=== PATIENT | female | born 1965 | race Caucasian/White ===

== ENCOUNTER 2020-10-05 10:50 | Outpatient (REF) | payer MEDICAID, SELFPAY ==
--- NOTE | ~2020-10-05 | XR_ITS ---
EXAMINATION: XR LUMBOSACRAL SPINE CLINICAL INFORMATION: Chronic back pain. COMPARISON: 01/09/2012 TECHNIQUE: Three views of the lumbosacral spine. FINDINGS: There is a lumbar scoliosis which has progressed since the prior study. Degenerative change is present at most levels in the spine. The most marked changes are present from L3 through L5. Since the prior study in 2011, findings have certainly progressed with increasing disc space narrowing and endplate sclerosis. New area of sclerosis in the right L3 pedicle. XR/XR lumbar spine 2-3V IMPRESSION: Progression of changes in the lumbosacral spine since 2011 as described above.
== END 2020-10-05 10:51 | disposition home or self-care (01) ==
LOC: HO.XRAY 10:50
PROVIDERS: PCP Nurse Practitioner Adult Health; Visit Provider Nurse Practitioner Adult Health
DX: M51.36 Other intervertebral disc degeneration, lumbar region (principal)
CPT/HCPCS: 72100

== ENCOUNTER → 2022-06-16 12:32 | Outpatient (BNVA) | payer OTHER, SELFPAY | PROVIDERS: PCP Nurse Practitioner Adult Health; Visit Provider Psychiatry & Neurology Psychiatry | DX: Z13.89 Encounter for screening for other disorder (principal) ==

== ENCOUNTER → 2022-09-14 16:55 | Outpatient (BNVA) | payer OTHER, SELFPAY | PROVIDERS: PCP Nurse Practitioner Adult Health; Visit Provider Psychiatry & Neurology Psychiatry ==

== ENCOUNTER 2022-12-12 15:27 | Outpatient (AMB) | payer OTHER, SELFPAY ==
--- NOTE | 2022-12-12 11:16 | MHC.OFFVISPS ---
Intake Intake Visit Reasons: depression Allergies No Known Allergies Allergy (Verified 04/18/22 17:23) Medication List - Last Reconciled 12/12/22 by Simeon Garzon MD albuterol sulfate 90 mcg/actuation (Ventolin HFA) 1 inh inhalation QID PRN 30 days fluoxetine 20 mg PO DAILY gabapentin 600 mg PO BEDTIME meloxicam 15 mg PO DAILY methylphenidate HCl ER 27 mg PO QAM zolpidem 5 mg PO BEDTIME PRN HPI- Psychiatric Chief Complaint: depression HPI Narrative: Pt has been doing well had spent time in md mood stable sleep ok intermittantly uses ambien 5 mg gabapentin 300 -600 mg some sluggishnish in am has generally been doing ok has been using lists borderline a1c drinks 2 glasses wine nite Past Psychiatric History: hx add chronic dysphoria Mental Status Exam Mental Status Exam Patient Appearance: Well Grooomed Patient Orientation: Person, Place, Time and Situation Level of Consciousness: Awake Patient Behavior: Appropriate Mood Description: Appropriate and Relaxed Affect Description: Calm and Appropriate Patient Cognition Impaired: No Ability to Follow Directions: Excellent Speech Pattern: Clear Memory Description: Intact Hallucinations: None Delusions: Not Present Thought Process: Intact Thought Content: negative for Suicidal Ideation or negative for Homicidal Ideation Depressive Symptoms: Increased Fatigue Judgement and Insight: working on organizational issues Telehealth Telehealth Location of provider rendering services: practice address Location of patient: address on file Patient Identification confirmed using: Name, : Yes Telehealth method: video Patient verbally consented to treatment: Yes Patient verbally consented to billing insurance company: Yes Minutes spent on Phone/Video with Pt.: 20 Assessment and Plan Assessment & Plan (1) ADHD (attention deficit hyperactivity disorder), inattentive type: Status: Acute Code(s): F90.0 - Attention-deficit hyperactivity disorder, predominantly inattentive type (2) Prediabetes: Status: Acute Code(s): R73.03 - Prediabetes (3) Restless leg: Status: Acute Code(s): G25.81 - Restless legs syndrome Plan Patient generally doing well mood stable discussed sleep hygiene related issues trial to see if she can eventually use Ambien on as-needed basis trying to maintain sleep schedule. Issues related to organizational activities. Patient with borderline hemoglobin A1c discussed decreasing alcohol which currently is generally to +1 a night which at present is above recommended dosing and can also interfere with sleep. Continue Prozac mood stable gabapentin for restless legs Ambien 5 mg methylphenidate extended release for longstanding ADD. No reported hypertension palpitations no complaints of side effects have discussed previously Prozac can contribute to issues related to restless legs Medications: Refilled methylphenidate HCl ER Partial Fill upon patient request. 27 mg PO QAM 30 tabs 0RF fluoxetine 20 mg PO DAILY 30 caps 2RF methylphenidate HCl ER Partial Fill upon patient request. 27 mg PO QAM 30 tabs 0RF Counseling and coordination of Care Medication management counseling: Effectiveness and Side effects Details-Med Mgmt counseling: Discussed association with sleep aids and dementia risk Diagnosis and Prognosis Counseling: Adequacy of current interventions Details: I spent [27] minutes reviewing the record, seeing the patient and documenting in the medical record. Counseling provided to the patient/caregiver as outlined below. Addressed patient/caregiver concerns regarding current medication regime including effective adherence. Addressed patient/caregiver concerns regarding diagnosis and prognosis including accuracy of diagnosis, prognosis over time, impact of diagnosis. Addressed patient/caregiver concerns regarding impact of recent stressors. 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
== END 2022-12-12 15:29 | disposition home or self-care (01) ==
LOC: HO.HOP 15:27
PROVIDERS: PCP Nurse Practitioner Adult Health; Visit Provider Psychiatry & Neurology Psychiatry
DX: F90.0 Attention-deficit hyperactivity disorder, predominantly inattentive type (principal); R73.03 Prediabetes; G25.81 Restless legs syndrome
CPT/HCPCS: 99214

== ENCOUNTER → 2022-12-12 15:27 | Outpatient (BNVA) | payer OTHER, SELFPAY | PROVIDERS: PCP Nurse Practitioner Adult Health; Visit Provider Psychiatry & Neurology Psychiatry | DX: F90.0 Attention-deficit hyperactivity disorder, predominantly inattentive type (principal); R73.03 Prediabetes; G25.81 Restless legs syndrome ==

== ENCOUNTER 2023-06-13 14:20 | Outpatient (AMB) | payer OTHER, SELFPAY ==
--- NOTE | 2023-06-13 11:30 | MHC.OFFVISPS ---
Intake Intake Visit Reasons: Depression Allergies No Known Allergies Allergy (Verified 04/18/22 17:23) Medication List - Last Reconciled 06/13/23 by Simeon Garzon MD albuterol sulfate 90 mcg/actuation (Ventolin HFA) 1 inh inhalation QID PRN 30 days Concerta ER (methylphenidate HCl) 27 mg PO DAILY NS fluoxetine 20 mg PO DAILY gabapentin 600 mg PO BEDTIME meloxicam 15 mg PO DAILY zolpidem 5 mg PO BEDTIME PRN HPI- Psychiatric Chief Complaint: Depression HPI Narrative: Pt seen in f/u was having metallic taste bitterness drinks 1-2 glasses wine nite was somewhat discouraged when having sensory problems and 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 gabapentin hs restless leg Past Psychiatric History: hx add chronic dysphoria Mental Status Exam Mental Status Exam Patient Appearance: Well Grooomed Patient Orientation: Person, Place, Time and Situation Level of Consciousness: Awake Patient Behavior: Appropriate Mood Description: Apprehensive (feels pressured at times ) Affect Description: Calm and Appropriate Patient Cognition Impaired: No Ability to Follow Directions: Excellent Speech Pattern: Clear Memory Description: Intact Hallucinations: None Delusions: Not Present Thought Process: Intact Thought Content: negative for Suicidal Ideation or negative for Homicidal Ideation Depressive Symptoms: Insomnia (improving ) Judgement: Good Telehealth Telehealth Location of provider rendering services: practice address Location of patient: address on file Patient Identification confirmed using: Name, : Yes Telehealth method: video Patient verbally consented to treatment: Yes Patient verbally consented to billing insurance company: Yes Minutes spent on Phone/Video with Pt.: 20 Assessment and Plan Assessment & Plan (1) Dysthymia: Status: Acute Code(s): F34.1 - Dysthymic disorder (2) Restless leg: Status: Acute Code(s): G25.81 - Restless legs syndrome (3) ADHD (attention deficit hyperactivity disorder), inattentive type: Status: Acute Code(s): F90.0 - Attention-deficit hyperactivity disorder, predominantly inattentive type Plan bp reportedly Medications: Refilled Concerta ER (methylphenidate HCl) Partial Fill upon patient request. 27 mg PO DAILY 30 tabs 0RF NS gabapentin 1/2-1 tab bedtime 600 mg PO BEDTIME 30 tabs 3RF fluoxetine 20 mg PO DAILY 90 caps 1RF Counseling and coordination of Care Details: I spent [30] minutes reviewing the record, seeing the patient and documenting in the medical record. Counseling provided to the patient/caregiver as outlined below. Addressed patient/caregiver concerns regarding current medication regime including effective adherence. Addressed patient/caregiver concerns regarding diagnosis and prognosis including accuracy of diagnosis, prognosis over time, impact of diagnosis. Addressed patient/caregiver concerns regarding impact of recent stressors. 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
== END 2023-06-13 14:21 | disposition home or self-care (01) ==
LOC: HO.HOP 14:20
PROVIDERS: PCP Nurse Practitioner Adult Health; Visit Provider Psychiatry & Neurology Psychiatry
DX: F34.1 Dysthymic disorder (principal); G25.81 Restless legs syndrome; F90.0 Attention-deficit hyperactivity disorder, predominantly inattentive type
CPT/HCPCS: 99214

== ENCOUNTER → 2023-06-13 14:20 | Outpatient (BNVA) | payer OTHER, SELFPAY | PROVIDERS: PCP Nurse Practitioner Adult Health; Visit Provider Psychiatry & Neurology Psychiatry ==

== ENCOUNTER 2023-10-05 11:08 | Outpatient (AMB) | payer OTHER, SELFPAY ==
--- NOTE | 2023-10-05 11:15 | MHC.OFFVISPS ---
Intake Vital Signs 10/05/23 11:38 BP 111/71 Pulse 71 Intake Visit Reasons: depression Allergies No Known Allergies Allergy (Verified 04/18/22 17:23) Medication List - Last Reconciled 10/05/23 by Simeon Garzon MD albuterol sulfate 90 mcg/actuation (Ventolin HFA) 1 inh inhalation QID PRN 30 days Concerta ER (methylphenidate HCl) 27 mg PO DAILY NS fluoxetine 20 mg PO DAILY gabapentin 600 mg PO BEDTIME meloxicam 15 mg PO DAILY zolpidem 5 mg PO BEDTIME PRN HPI- Psychiatric Chief Complaint: depression HPI Narrative: Pt seen in f/u mood ok intermittent burning feet has prediabetes has had periods of heavy drinking not currently can feel overstressed difficulty maintaining better habits Past Psychiatric History: hx add chronic dysphoria Assessment and Plan Assessment & Plan Medications: Refilled fluoxetine 20 mg PO DAILY 90 caps 1RF Concerta ER (methylphenidate HCl) Partial Fill upon patient request. 27 mg PO DAILY 30 tabs 0RF NS Counseling and coordination of Care Details: I spent [] minutes reviewing the record, seeing the patient and documenting in the medical record. Counseling provided to the patient/caregiver as outlined below. Addressed patient/caregiver concerns regarding current medication regime including effective adherence. Addressed patient/caregiver concerns regarding diagnosis and prognosis including accuracy of diagnosis, prognosis over time, impact of diagnosis. Addressed patient/caregiver concerns regarding impact of recent stressors. 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
[2023-10-05 11:38] VITALS: BP 111/71; PULSE 71
== END 2023-10-05 11:49 | disposition home or self-care (01) ==
LOC: HO.HOP 11:08
PROVIDERS: PCP Nurse Practitioner Adult Health; Visit Provider Psychiatry & Neurology Psychiatry
DX: F33.1 Major depressive disorder, recurrent, moderate (principal)
CPT/HCPCS: 99214

== ENCOUNTER → 2023-10-05 11:08 | Outpatient (BNVA) | payer OTHER, SELFPAY | PROVIDERS: PCP Nurse Practitioner Adult Health; Visit Provider Psychiatry & Neurology Psychiatry ==

== ENCOUNTER 2023-12-28 13:10 | Outpatient (AMB) | payer OTHER, SELFPAY ==
--- NOTE | 2023-12-28 11:51 | MHC.OFFVISPS ---
Intake Intake Visit Reasons: depression Allergies No Known Allergies Allergy (Verified 04/18/22 17:23) HPI- Psychiatric Chief Complaint: depression HPI Narrative: Pt seen in f/u mood intermittantly dysphoric has pain wrists back asked to cut back on meloxicam. 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 Patient does have some degree of burning mouth syndrome have strongly urged discontinuing all alcohol given Mood burning mouth and intermittent neuropathy. Patient continues to function does tend to get discouraged. Continues to feel long-acting methylphenidate helpful for functioning Past Psychiatric History: hx add chronic dysphoria Mental Status Exam Mental Status Exam Patient Appearance: Well Grooomed Patient Orientation: Person, Place, Time and Situation Level of Consciousness: Awake Patient Behavior: Appropriate Mood Description: Flat and Apprehensive (feels pressured at times ) Affect Description: Appropriate and Constricted Patient Cognition Impaired: No Ability to Follow Directions: Excellent Speech Pattern: Clear Memory Description: Intact Hallucinations: None Delusions: Not Present Thought Process: Intact Thought Content: negative for Suicidal Ideation or negative for Homicidal Ideation Depressive Symptoms: Insomnia (improving ) Judgement: Good Telehealth Telehealth Telehealth Platform: General Compression Location of provider rendering services: practice address Location of patient: address on file Patient Identification confirmed using: Name, : Yes Telehealth method: video Patient verbally consented to treatment: Yes Patient verbally consented to billing insurance company: Yes Minutes spent on Phone/Video with Pt.: 20 Assessment and Plan Assessment & Plan (1) ADHD (attention deficit hyperactivity disorder), inattentive type: Status: Acute Code(s): F90.0 - Attention-deficit hyperactivity disorder, predominantly inattentive type (2) Dysthymia: Status: Acute Code(s): F34.1 - Dysthymic disorder (3) Restless leg: Status: Acute Code(s): G25.81 - Restless legs syndrome Plan Continue Concerta again recommended discontinue all alcohol use ALA 4 neuropathy question burning tongue tongue/mouth Continue fluoxetine gabapentin HS Medications: Refilled Concerta ER (methylphenidate HCl) Partial Fill upon patient request. 27 mg PO DAILY 30 tabs 0RF NS Counseling and coordination of Care Medication management counseling: Effectiveness and Side effects Diagnosis and Prognosis Counseling: Adequacy of current interventions Details: I spent [30] minutes reviewing the record, seeing the patient and documenting in the medical record. Counseling provided to the patient/caregiver as outlined below. Addressed patient/caregiver concerns regarding current medication regime including effective adherence. Addressed patient/caregiver concerns regarding diagnosis and prognosis including accuracy of diagnosis, prognosis over time, impact of diagnosis. Addressed patient/caregiver concerns regarding impact of recent stressors. 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
== END 2023-12-28 13:10 | disposition home or self-care (01) ==
LOC: HO.HOP 13:10
PROVIDERS: PCP Nurse Practitioner Adult Health; Visit Provider Psychiatry & Neurology Psychiatry
DX: F90.0 Attention-deficit hyperactivity disorder, predominantly inattentive type (principal); F34.1 Dysthymic disorder; G25.81 Restless legs syndrome
CPT/HCPCS: 99214

== ENCOUNTER → 2023-12-28 13:10 | Outpatient (BNVA) | payer OTHER, SELFPAY | PROVIDERS: PCP Nurse Practitioner Adult Health; Visit Provider Psychiatry & Neurology Psychiatry ==

== ENCOUNTER 2024-05-23 11:18 | Outpatient (AMB) | payer OTHER, SELFPAY ==
--- NOTE | 2024-05-23 11:01 | MHC.OFFVISPS ---
Intake Vital Signs 05/23/24 11:02 BP 128/84 Pulse 76 Intake Visit Reasons: depression Allergies No Known Allergies Allergy (Verified 04/18/22 17:23) Medication List - Last Reconciled 05/23/24 by Simeon Garzon MD albuterol sulfate 90 mcg/actuation (Ventolin HFA) 1 inh inhalation QID PRN 30 days Concerta ER (methylphenidate HCl) 27 mg PO DAILY NS fluoxetine 20 mg PO DAILY gabapentin 600 mg PO BEDTIME meloxicam 15 mg PO DAILY zolpidem 5 mg PO BEDTIME PRN HPI- Psychiatric Chief Complaint: depression HPI Narrative: Pt seen in f/u has again not fully cut down on alcohol which we have discussed previously. Patient continues on gabapentin zolpidem gabapentin for restless leg and insomnia. The patient's mood generally stable there is a lot of stress at home with her intermittently. Past Psychiatric History: hx add chronic dysphoria Mental Status Exam Mental Status Exam Patient Appearance: Well Grooomed Patient Orientation: Person, Place, Time and Situation Level of Consciousness: Awake Patient Behavior: Appropriate Mood Description: Flat and Apprehensive (feels pressured at times ) Affect Description: Appropriate and Constricted Patient Cognition Impaired: No Ability to Follow Directions: Excellent Speech Pattern: Clear Memory Description: Intact Hallucinations: None Delusions: Not Present Thought Process: Intact Thought Content: negative for Suicidal Ideation or negative for Homicidal Ideation Depressive Symptoms: Insomnia (improving ) Judgement and Insight: Some impairment in relationship to needing to give up alcohol Assessment and Plan Assessment & Plan (1) ADHD (attention deficit hyperactivity disorder), inattentive type: Status: Acute Code(s): F90.0 - Attention-deficit hyperactivity disorder, predominantly inattentive type (2) Dysthymia: Status: Acute Code(s): F34.1 - Dysthymic disorder Plan Discussed need for patient to avoid alcohol with gabapentin and zolpidem continue fluoxetine discussed option of ramelteon as possibility of to go off all zolpidem continue gabapentin for restless leg we have discussed low iron being a risk factor for restless leg otherwise continue plan of care. Continue Concerta. Blood pressure was unremarkable. Consider setting clear limit regarding alcohol use with zolpidem Medications: Refilled zolpidem 5 mg PO BEDTIME PRN 30 tabs 3RF insomnia Counseling and coordination of Care Pt. Self Management counseling: Substance abuse tx adhere Medication management counseling: Effectiveness, Side effects and Dosing range Diagnosis and Prognosis Counseling: Impact of diagnosis on life functions, Problematic behaviors secondary to diagnosis and Adequacy of current interventions Details: I spent [32] minutes reviewing the record, seeing the patient and documenting in the medical record. Counseling provided to the patient/caregiver as outlined below. Addressed patient/caregiver concerns regarding current medication regime including effective adherence. Addressed patient/caregiver concerns regarding diagnosis and prognosis including accuracy of diagnosis, prognosis over time, impact of diagnosis. Addressed patient/caregiver concerns regarding impact of recent stressors. 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
[2024-05-23 11:02] VITALS: BP 128/84; PULSE 76
--- OUTSIDE RECORDS SUMMARY | 2024-05-23 12:20 | XMS_ITS | Data Portability ---
Author Organization [facility], [facility] Address [address] [place] [address] Care Team Providers Care Stoneworking Belt Sander Name Role Phone MARINTUCKERMARCEL ESPARZA Primary Care Provider Assessment Encounter Date Assessment Date Assessment LastModified by Organization Details LastModified Time 12/08/2021 12/08/2021 (3) Reassessed leg length. In STN there is a significant although not complete correction of LLD. She will explore obtaining customized orthotics. Core strengthening initiated and manual therapy tolerated well. PLAN; continue skobylarz Not available 12/08/2021 10:21:12 12/13/2021 12/13/2021 (4) Patient reporting that she has not been able to perform isometric adduction regularly. She has recommitted to this. Added flexion and rotation in right sidelying today. PLAN; progress strengthening. [email or web address] Not available 12/13/2021 12:31:40 12/15/2021 12/15/2021 (5) Right anterior innominate corrected with MET. Significant left parathoracic guarding. PLAN; continue skobylarz Not available 12/15/2021 10:26:58 12/27/2021 12/27/2021 (6) MET for correction of a right anterior innominate and lateral shift correction resulted in excellent alignment. UPA in the thoracic spine on the right + hypomobility. PLAN: she will increase time spent on PN with isometric adduction and abduction. If in SIJ dysfunction will consider an SILoc belt. [email or web address] Not available 12/27/2021 11:30:00 01/11/2022 01/11/2022 (7) ICH equal. Patient reporting improvement in all sxs with exception of a general ache across the lumbar spine. CORE strengthening progressesd. PLAN; 2 week follow up. [email or web address] Not available 01/11/2022 11:33:23 Plan of Treatment Reminders Order Date Submit Date Provider Last Modified By Organization Details Last Modified Time Details Appointments None record ed. Lab None record ed. Referral None record ed. Procedures None record ed. Surgeries None record ed. Imaging None record ed. Medication Orders None record ed. Patient TargetsNo targets recorded. Patient InstructionsNo instructions recorded. Reason for Referral None Reported. Procedures Surgical History Date Name Laterality Status Provider Name and Address Organization Details Recorded Time 2 98780: Therapeutic Exercise completed Adriane Kendall, PT [address] [place], [address], [facility] 01/11/2022 11:32:27 2 13553: Manual Therapy completed Adriane Kendall, PT [address] [place], [address], [facility] 01/11/2022 11:32:31 2 10399: Therapeutic Exercise completed Adriane Kendall, PT [address] [place], [address], [facility] 12/27/2021 11:28:35 2 27965: Manual Therapy completed Adriane Kendall, PT [address] [place], [address], [facility] 12/27/2021 11:28:40 2 81766: Therapeutic Exercise completed Adriane Kendall, PT [address] [place], [address], [facility] 12/15/2021 10:26:01 2 73014: Manual Therapy completed Adriane Kendall, PT [address] [place], [address], [facility] 12/15/2021 10:26:06 2 14619: Therapeutic Exercise completed Adriane Kendall, PT [address] [place], [address], [facility] 12/13/2021 12:30:39 2 57949: Manual Therapy completed Adriane Kendall, PT [address] [place], [address], [facility] 12/13/2021 12:30:43 2 84794: Therapeutic Exercise completed Adriane Kendall, PT [address] [place], [address], [facility] 12/08/2021 10:19:07 2 03413: Manual Therapy completed Adriane Kendall, PT [address] [place], [address], [facility] 12/08/2021 10:19:19 2 58680: Therapeutic Exercise completed Adriane Kendall, PT [address] [place], [address], [facility] 11/29/2021 09:07:44 2 Physical Activity Counselling completed Adriane Kendall, PT [address] [place], [address], [facility] 11/27/2021 18:44:07 2 32084: PT Eval Low Complexity completed Adriane Kendall, PT [address] [place], [address], [facility] 11/27/2021 18:44:10 7 Tyson - Colonoscopy completed Sherman Mehta MD [address] [place] [address], [address], [facility] 04/28/2016 14:38:07 Imaging Results None recorded. Procedure Notes None recorded. Medical Equipment None Reported. Medications Name Sig Start Date Stop Date Status Note LastModified by Organization Details LastModified Time gabapentin 600 mg tablet TAKE 1/2 - 1 TABLET BY MOUTH AT BEDTIME NEEDED active Not Available Not Available No t Available Concerta 18 mg tablet,extended release TAKE 1 TABLET BY MOUTH EVERY DAY active Not Available Not Available No t Available methylphenidate 10 mg tablet TAKE 1/2 TO 1 TABLET BY MOUTH ONCE A DAY NEEDED active Not Available Not Available No t Available meloxicam 15 mg tablet TAKE 1 TABLET (15 MG TOTAL) BY MOUTH DAILY. active Not Available Not Available No t Available prochlorperazin e maleate 10 mg tablet active Not Available Not Available Not Available fluoxetine 20 mg tablet active Not Available Not Available No t Available zolpidem 5 mg tablet TAKE 1 TABLET BY MOUTH EVERY DAY AT BEDTIME NEEDED active Not Available Not Available No t Available fluoxetine 20 mg capsule TAKE 1 CAPSULE BY MOUTH EVERY DAY active Not Available Not Available No t Available methylphenidate ER 36 mg tablet,extended release 24 hr active Not Available Not Availabl e Not Available Concerta 27 mg tablet,extended release TAKE 1 TABLET BY MOUTH EVERY DAY active Not Available Not Available No t Available Vitals None Recorded Social History None recorded. Functional Status None recorded. Mental Status None recorded. Family History Nothing Reported. Medical History No medical history recorded. Gynecological HistoryNo gynecological history recorded. Obstetrics History GPAL:G 0 P 0 0 0 0 Past Encounters Encounter ID Performer Location Encounter Start Date Encounter Closed Date Diagnosis/Indication Diagnosis SNOMED-CT Code Diagnosis ICD10 Code Diagnosis Note [id number] Sherman Mehta MD [facility], [address] [address] 04/28/2016 11:58:16 04/28/2016 14:49:46 [id number] Adriane Kendall, PT Physical Therapy, [address] [address] 11/25/2021 09:48:24 11/28/2021 08:23:08 Low back pain [id number] M54.51 [id number] Adriane Kendall, PT Physical Therapy, [address] [address] 11/29/2021 08:37:12 11/29/2021 09:11:51 Low back pain [id number] M54.51 [id number] Adriane Kendall, PT Physical Therapy, [address] [address] 12/08/2021 09:28:18 12/08/2021 10:21:56 Low back pain [id number] M54.51 [id number] Adriane Kendall, PT Physical Therapy, [address] [address] 12/13/2021 11:50:15 12/13/2021 12:33:38 Low back pain [id number] M54.51 [id number] Adriane Kendall, PT Physical Therapy, [facility] [address] [facility] [place] [address] 12/15/2021 09:34:47 12/15/2021 10:50:03 Low back pain [id number] M54.51 [id number] Adriane Kendall, PT Physical Therapy, [facility] [address] [facility] [place] [address] 12/27/2021 10:46:11 12/27/2021 12:14:23 Low back pain [id number] M54.51 [id number] Adriane Kendall, PT Physical Therapy, [facility] [address] [place] [address] 01/11/2022 10:51:05 01/11/2022 11:40:16 Low back pain [id number] M54.51 Health Concerns Section Related Observation LastModified by Organization Detai ls LastModified Time None Recorded Concern Status LastModified by Organization Details LastModified Time None Recorded Advance Directives Directive None Recorded Payers Encounter Date Sequence Insurance Name Policy Number Policy Light Covered Member ID Light Member ID Guarantor Name 12/08/2021 1 [place] 20[place] - [facility] (MEDICAID) Kaye Chow [id number] Kaye Chow 12/13/2021 1 [place] 20[place] - [facility] Kaye Chow [id number] Kaye Chow 12/15/2021 1 [place] 20[place] - [facility] (MEDICAID) Kaye Chow [id number] Kaye Chow 12/27/2021 1 [place] 20[place] - [facility] (MEDICAID) Kaye Chow [id number] Kaye Chow 01/11/2022 1 [place] 20[place] - [facility]ICA[facility]) Kaye Chow [id number] Kaye Chow Notes Date Note Type Note Provider Name and Address Organization Details Recorded Time 12/08/2021 text/html I felt really go od after therapy. I did have some referral discomfort but that too past after several days. Adriane Kendall, PT [address] [place], [address], [facility] 12/08/2021 10:21:29 12/13/2021 text/html This morning I rolled the right ankle and went to the ground. Adriane Kendall, PT [address] [place], [address], [facility] 12/13/2021 12:31:59 12/15/2021 text/html I am not sure if there was any change from the last appointment. Adriane Kendall, PT [address] [place], [address], [facility] 12/15/2021 10:27:21 12/27/2021 text/html I am feeling a little better. I haven't felt anything radiating in the buttock. I am trying to engage my abs when walking. Adriane Kendall, PT [address] [place], [address], [facility] 12/27/2021 11:30:26 01/11/2022 text/html Generally, the L BP that radiates into the left leg is less. ~ 60% reduction in frequency and intensity. The locking up in the midspine is also less. The general lumbar discomfort is more. My dog pulled me over backwards and to the left. I saw the chiropractor which was very helpful. Adriane Kendall, PT [address] [place], [address], [facility] 01/11/2022 11:33:41 OBGyn Episode No OBEpisode recorded.
--- OUTSIDE RECORDS SUMMARY | 2024-05-23 12:20 | XMS_ITS | Data Portability ---
Author Organization [place] - [facility], Allergy Address [address] [place] [id number] Care Team Providers Care Physical Therapy Attendant Name Role Phone MARINMARCEL ESTRADA Primary Care Provider Assessment Encounter Date Assessment Date Assessment LastModified by Organization Details LastModified Time 11/15/2023 11/15/2023 57 year old fema le with about one year of nasal congestion and altered smell and taste. She has an intermittent bitter taste which can alter the taste of foods at times. She has noted some improvement in her nasal congestion with use of Flonase and Claritin. History of cleft palate and ETD as a child. Ear exam reveals tympanosclerosis bilaterally with retracted tympanic membranes. She has a deviated septum to the left. Nasal endoscopy does not reveal any polyps or obvious sign of infection. Post surgical change to the palate noted. Recommend further evaluation with a CT scan of the sinuses. She will continue her Flonase and Claritin in the interim. She will follow up after the CT for review. [email or web address] Not available 11/15/2023 15:36:53 Plan of Treatment Reminders Order Date Submit Date Provider Last Modified By Organization Details Last Modified Time Details Appointments None record ed. Lab None record ed. Referral None record ed. Procedures None record ed. Surgeries None record ed. Imaging None record ed. Medication Orders None record ed. Patient TargetsNo targets recorded. Patient InstructionsNo instructions recorded. Reason for Referral None Reported. Problems Name Problem SNOMED Code Status Onset Date Resolution Date Notes Provider Name and Address Organization Details Recorded Time Nasal congestion 68082838 Active 2023 EMILY YANCEY PA-C [address] [facility], [place], [address], [facility] - [facility] 4 15:34:01 Loss of sense of smell 54962438 Active 2023 EMILY YANCEY PA-C [address] [place] [address],[place] [address], [place], [phone], [facility] [place] 4 15:34:08 Taste sense altered 044679418 Active 2023 EMILY YANCEY PA-C [address] [place] [address],[place] [address], [place], [address], [facility] - [facility] [place] 4 15:34:15 Disorder of smell 987658118 Active 2023 EMILY YANCEY PA-C [address] [place] [address],[place] [address], [place], [address], [facility] - [facility] [place] 4 15:34:29 Sensory disorder of smell and/or taste 9121498797961 Active 2023 Mitesh quiroz [place] [facility] [place] 4 16:50:24 Chronic sinusitis 23661022 Active 2023 Mitesh quiroz [facility] [place] 4 16:51:23 Problem Notes None recorded. Procedures Surgical History Date Name Laterality Status Provider Name and Address Organization Details Recorded Time 11/15/19 24 JMSNasal/Sinus Endoscopy completed EMILY YANCEY PA-C [address] [place] [address],[address], [phone], [facility] 11/15/2023 15:33:54 mammogram - symptomatic completed Mary Castro [facility] [place] 11/15/2023 15:01:34 Imaging Results None recorded. Procedure Notes None recorded. Medical Equipment None Reported. Medications Name Sig Start Date Stop Date Status Note LastModified by Organization Details LastModified Time gabapentin 600 mg tablet TAKE ONE-HALF TO 1 TABLET BY MOUTH EVERY NIGHT AT BEDTIME active Not Available Not Available No t Available meloxicam 15 mg tablet TAKE 1 TABLET (15 MG TOTAL) BY MOUTH DAILY. active Not Available Not Available No t Available zolpidem 5 mg tablet TAKE 1 TABLET BY MOUTH AT BEDTIME NEEDED FOR INSOMNIA active Not Available Not Available No t Available fluoxetine 20 mg capsule TAKE 1 CAPSULE BY MOUTH DAILY active Not Available Not Available No t Available Concerta 27 mg tablet,extende d release TAKE 1 TABLET BY MOUTH DAILY active Not Available Not Available No t Available chlorhexidine gluconate 0.12 % mouthwash RINSE WITH 15 ML TWICE DAILY IN AM AND PM AFTER BRUSHING FOR 30 SECONDS. SPIT AFTER USE. DO NOT SWALLOW active Not Available Not Available No t Available Vitals Date Recorded Body height Body mass index (BMI) Body weight Provider Name and Address Organization Details Last Updated DateTime 11/15/2023 165.1 cm 24.1 kg/m2 94199.89 g Mary Castro [place] - [facility] 11/15/2023 14:57:03 Social History None recorded. Functional Status None recorded. Mental Status None recorded. Family History Nothing Reported. Medical History Condition Response Anxiety Y Depression Y Gynecological HistoryNo gynecological history recorded. Obstetrics History GPAL:G 0 P 0 0 0 0 Immunizations Vaccine Type Date Status Note Provider Nam e and Address Organization Details Recorded Time influenza nasal, unspecified formulation 3 completed Mary quiroz [place] - [facility] 11/15/2023 15:00:28 Past Encounters Encounter ID Performer Location Encounter Start Date Encounter Closed Date Diagnosis/Indication Diagnosis SNOMED-CT Code Diagnosis ICD10 Code Diagnosis Note [id number] EMILY YANCEY PA-C [facility] on [address] [place] [phone] 11/15/2023 14:29:33 11/16/2023 08:35:30 Nasal congestion 14632270 R09.81 Taste sense altered 2718 [address]676 R43.2 Disorder of smell 433458 005 R43.9 Health Concerns Section Related Observation LastModified by Organization Detai ls LastModified Time None Recorded Concern Status LastModified by Organization Details LastModified Time None Recorded Advance Directives Directive None Recorded Payers Encounter Date Sequence Insurance Name Policy Number Policy Light Covered Member ID Light Member ID Guarantor Name 11/15/2023 1 [facility] Kaye Chow [id number] Kaye Chow 11/15/2023 1 [place] [facility] Kaye Chow [id number] Kaye Chow Notes Date Note Type Note Provider Name and Address Organization Details Recorded Time 11/15/2023 text/html 57 [address] ar[address]old presents today for evaluation of She feels most of the time she is congested. The congestion seems to be bilateral, it can alternate sides. She has been taking Claritin and Flonase and it does seem to help. She denies any chronic headaches, facial pain or pressure. She has occasional runny nose. She reports the last few years her sense of smell has been diminished. She has had some decrease in her taste when she is more congested. She has had a bitter taste in her mouth for the last year or so. It is not constant. It tends to be worse in the afternoon. Sometimes her food will taste bitter. She found that a particular toothpaste was worsening her symptoms. She stopped her supplements because she was worried that zinc may be contributing. She also notes that around the time the bitter taste started she also underwent treatment for an infected right maxillary molar and subsequent dental work. History of cleft palate repair and tubes as a child. EMILY YANCEY PA-C [address] [place] [address], [place], [address], [place] - [facility] 11/15/2023 15:37:50 OBGyn Episode No OBEpisode recorded.
== END 2024-05-23 11:22 | disposition home or self-care (01) ==
LOC: HO.HOP 11:18
PROVIDERS: PCP Nurse Practitioner Adult Health; Visit Provider Psychiatry & Neurology Psychiatry
DX: F90.0 Attention-deficit hyperactivity disorder, predominantly inattentive type (principal); F34.1 Dysthymic disorder
CPT/HCPCS: 99214

== ENCOUNTER 2024-09-19 13:47 | Outpatient (AMB) | payer OTHER, SELFPAY ==
--- NOTE | 2024-09-19 11:12 | MHC.OFFVISPS ---
Intake Intake Visit Reasons: depression Allergies No Known Allergies Allergy (Verified 04/18/22 17:23) Medication List - Last Reconciled 09/19/24 by Simeon Garzon MD albuterol sulfate 90 mcg/actuation (Ventolin HFA) 1 inh inhalation QID PRN 30 days Concerta ER (methylphenidate HCl) 27 mg PO DAILY NS fluoxetine 20 mg PO DAILY gabapentin 600 mg PO BEDTIME meloxicam 15 mg PO DAILY zolpidem 5 mg PO BEDTIME PRN HPI- Psychiatric Chief Complaint: depression HPI Narrative: Pt seen in f/u some periods of irritability sleep has been better drinking about 2 glasses 2 nites wk has been prediabetic some inc cholesterol tends to be somewhat dismissive regarding her alcohol use especially because 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 S of memory disorder ome periods of dysphoria anxiety trying to live healthier with her . Feels gabapentin at HS and fluoxetine helpful. We have discussed Ambien and risks Past Psychiatric History: hx add chronic dysphoria Mental Status Exam Mental Status Exam Patient Appearance: Well Grooomed Patient Orientation: Person, Place, Time and Situation Level of Consciousness: Awake Patient Behavior: Appropriate Mood Description: Flat and Apprehensive (feels pressured at times ) Affect Description: Appropriate and Constricted Patient Cognition Impaired: No Ability to Follow Directions: Excellent Speech Pattern: Clear Memory Description: Intact Hallucinations: None Delusions: Not Present Thought Process: Intact Thought Content: negative for Suicidal Ideation or negative for Homicidal Ideation Depressive Symptoms: Insomnia (improving ) Judgement and Insight: Some impairment in relationship to needing to give up alcohol Telehealth Telehealth Telehealth Platform: [facility] Location of provider rendering services: practice address Location of patient: address on file Patient Identification confirmed using: Name, : Yes Telehealth method: video Patient verbally consented to treatment: Yes Patient verbally consented to billing insurance company: Yes Minutes spent on Phone/Video with Pt.: 20 Assessment and Plan Assessment & Plan (1) Dysthymia: Status: Acute Code(s): F34.1 - Dysthymic disorder (2) ADHD (attention deficit hyperactivity disorder), inattentive type: Status: Acute Code(s): F90.0 - Attention-deficit hyperactivity disorder, predominantly inattentive type (3) Prediabetes: Status: Acute Code(s): R73.03 - Prediabetes Plan Continue Concerta gabapentin at HS have asked on gabapentin try to use lowest dose that is effective discussed long-term potential risks. Gabapentin helpful for restless legs may also be helpful for burning mouth depression generally in check Medications: Refilled Concerta ER (methylphenidate HCl) Partial Fill upon patient request. 27 mg PO DAILY 30 tabs 0RF NS gabapentin 1/2-1 tab bedtime 600 mg PO BEDTIME 30 tabs 3RF Counseling and coordination of Care Details-Self Mgmt counseling: Again discussed issues related to alcohol use Medication management counseling: Effectiveness, Side effects and Dosing range Diagnosis and Prognosis Counseling: Adequacy of current interventions Details: I spent [27] minutes reviewing the record, seeing the patient and documenting in the medical record. Counseling provided to the patient/caregiver as outlined below. Addressed patient/caregiver concerns regarding current medication regime including effective adherence. Addressed patient/caregiver concerns regarding diagnosis and prognosis including accuracy of diagnosis, prognosis over time, impact of diagnosis. Addressed patient/caregiver concerns regarding impact of recent stressors. 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
== END 2024-09-19 13:47 | disposition home or self-care (01) ==
LOC: HO.HOP 13:47
PROVIDERS: PCP Nurse Practitioner Adult Health; Visit Provider Psychiatry & Neurology Psychiatry
DX: F34.1 Dysthymic disorder (principal); F90.0 Attention-deficit hyperactivity disorder, predominantly inattentive type; R73.03 Prediabetes
CPT/HCPCS: 99214

== ENCOUNTER → 2024-09-19 13:47 | Outpatient (BNVA) | payer OTHER, SELFPAY | PROVIDERS: PCP Nurse Practitioner Adult Health; Visit Provider Psychiatry & Neurology Psychiatry ==

== ENCOUNTER 2025-01-16 15:27 | Outpatient (AMB) | payer OTHER, SELFPAY ==
--- OUTSIDE RECORDS SUMMARY | 2021-01-01 16:45 | XMS_ITS | Encounter Summary ---
Author Organization [facility] Address [address] [place] [address] [place] [id number] Phone Care Team Providers Care Lithographer Helper Name Role Phone Chucho Limon MD Unavailable [phone] Modesto Ramirez CNP Primary Care Provider [phone] Simeon Garzon MD Unavailable [phone] Chucho Limon MD Unavailable [phone] Encounter Details Date Type Department Care Team (Late st Contact Info) Description 01/01/2021 4:45 PM EDT Hospital Encounter [facility] [address] [place] [id number] Ed Randall PA-C [address] [place] [address] [email or web address] Social History Tobacco Use Types Packs/Day Years Used Date Smoking Tobacco: Never Smokeless Tobacco: Never Alcohol Use Standard Drinks/Week Comments Yes 6 (1 standard drink = 0.6 oz pur e alcohol) 2 drinks 3-4x/week (2023) Child or Family Care Answer Date Record ed Do you have problems with on e of the following making it difficult for you to work, study, or receive health care? No 11/13/2023 Education Answer Date Recorded Are you interested in help w ith more adult education (for example, completing high school, GED, job training, learning the [place] language, technical skills, or developing parenting skills)? No 11/13/2023 Are you concerned about learning? Not on file 11/13/2023 No 11/13/2023 Yes 11/13/2023 Food Answer Date Recorded Within the past 6 months we worried whether our food would run out before we got money to buy more. Never True 11/13/2023 Within the past 6 months the food we bought just didn't last and we didn't have enough money to get more. Never True Residential Stability Answer Date Recor ded What is your housing situation today? I have juan manuel sing 11/13/2023 How many times have you move d in the past 12 months? Zero (I did not move) 11/13/2023 Paying for Meds Answer Date Recorded Do you have trouble paying for medicines? No 11/13/2023 Paying Utility Bills Answer Date Record ed Do you have trouble paying your heating or elect ricity bill? No 11/13/2023 Transportation Answer Date Recorded Has the lack of transportati on kept you from medical appointments or from getting medications? No 11/13/2023 Unemployment Answer Date Recorded Are you currently unemployed or working on a part-time or temporary basis, and looking for work? No 08/19/2021 Digital Access Answer Date Recorded No 11/13/2023 Yes 11/13/2023 Do you have reliable internet access at home? Ye s 11/13/2023 Do you have a device (e.g., phone, tablet, computer) with a working camera? Yes 11/13/2023 SNAP & WIC Answer Date Recorded Do you receive benefits from SNAP (the Supplemental Nutrition Assistance Program) or the Food Stamp Program? No 11/13/2023 SNAP is a free program that can help you and your family get access to healthy foods, nutrition classes, utility discounts, and more. Would you be interested in learning more? No 11/13/2023 Can we help you enroll in SNAP? Not on file 11/13/2023 Benefits received from WIC? Not on file 10/16 WIC is a free program, interested in learning mo re? Not on file 11/13/2023 Can we help you enroll in WIC? Not on file 0 11/13/2023 Intimate Partner Violence Answer Date R ecorded Are you denied basic needs s uch as food, clothing, or medical care? No 02/22/2024 In the past 12 months have y ou been in a relationship with a person who hurts, threatens, or tries to control you? No 02/22/2024 Are you denied basic needs s uch as food, clothing, or medical care? No 02/22/2024 In the past 12 months have y ou been in a relationship with a person who hurts, threatens, or tries to control you? 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 Wish to be (Past 1 Month) No 02/22/2024 7:36 PM Pamela Abbott RN 2. Non-Specific Active Suicidal Thoughts (Past 1 Month) No 02/22/2024 7:36 PM Pamela Abbott RN 6. Suicidal Behavior (Lifetime) No 02/22/2024 7:36 PM Pamela Abbott RN documented as of this encounter Plan of Treatment Upcoming Encounters Date Type Department Care Team (Late st Contact Info) Description 02/10/2025 10:00 AM EDT Nutrition [facility] Medical [facility] [address] [place] [address] [place] [address] Adina Mccartney MD [address] [place] [id number] Jeanie Gaitan LDN [address] [place] [address] [place] [address] 02/27/2025 10:10 AM EST Office Visit [facility] Rheumatology [address] [place] [address] Radha Zaman MD, MPH [address] [facility], [address] [place] [address] [email or web address] documented as of this encounter Procedures Procedure Name Priority Date/Time Associated Diagnosis Comments XR ANKLE 3 OR MORE VIEWS (RIGHT) Urgent/patient waiting 01/01/2021 4:57 PM EDT Right foot sprain, initial encounter documented in this encounter Results * XR ANKLE 3 OR MORE VIEWS (RIGHT) (01/01/2021 4:57 PM EDT) Anatomical Region Laterality Modality Ankle Right Computed Radiogr aphy 01/01/2021 5:12 PM EDT Impressions 01/01/2021 5:14 PM EDT 1.No acute fracture or dislocation. 2.Hallux valgus. Narrative 01/01/2021 5:14 PM EDT XR FOOT 3 OR MORE VIEWS (RIGHT), XR ANKLE 3 OR MORE VIEWS (RIGHT) COMPARISON: None FINDINGS: Right Ankle: No acute fracture. Normal alignment. Talar dome and ankle mortise are preserved. No focal soft tissue swelling. Right Foot: No acute fracture or dislocation. Hallux valgus and metatarsus primus varus with bunion and overlying soft tissue prominence. Mild degenerative change at the right MTP joint. Tiny plantar calcaneal spur. Procedure Note Rosanna Bravo MD - 01/01/2021 XR FOOT 3 OR MORE VIEWS (RIGHT), XR ANKLE 3 OR MORE VIEWS (RIGHT) COMPARISON: None FINDINGS: Right Ankle: No acute fracture. Normal alignment. Talar dome and anklemortise are preserved. No focal soft tissue swelling. Right Foot: No acute fracture or dislocation. Hallux valgus and metatarsusprimus varus with bunion and overlying soft tissue prominence. Milddegenerative change at the right MTP joint. Tiny plantar calcaneal spur. IMPRESSION: 1.No acute fracture or dislocation. 2.Hallux valgus. us Ed Randall PA-C IMG XR LOWER EXTREMITY F inal Result documented in this encounter Visit Diagnoses Not on filedocumented in this encounter Additional Health Concerns Assessment Noted Time PHQ-2 Depression Total Score: 0 02/23/20 20 11:19 PM EST documented as of this encounter Care Teams Lithographer Helper Relationship Specialty Start Date End Date Modesto Ramirez CNP [address] [place] [address], [address] [place] [address] PCP - General Family Medicine 02/20/18 Chucho Limon MD [address] [place] [address], [address] [place] [address] Historical LMR Provider 01/30/17 04/23/21 Simeon Garzon MD [address] [place] [address] Psychiatry 02/24/20 Chucho Limon MD [address] [place] [address], [address] [place] [address] Insurance Assigned Provider 01/25/1912/23/22 documented as of this encounter Additional Source Comments The information contained in this document represents components of the legal health record. It is not the complete legal health record.[facility]
--- OUTSIDE RECORDS SUMMARY | 2021-01-01 16:50 | XMS_ITS | Encounter Summary ---
Author Organization [facility] Address [address] [place] [address] Phone Care Team Providers Care Chain Link Fence Installer Name Role Phone Chucho Limon MD Unavailable [phone] Modesto Ramirez CNP Primary Care Provider [phone] Simeon Garzon MD Unavailable [phone] Chucho Limon MD Unavailable [phone] Encounter Details Date Type Department Care Team (Late st Contact Info) Description 01/01/2021 4:50 PM EDT Hospital Encounter [facility] [address] [place] [address] Ed Randall PA-C [address] [place] [address] [email or web address] Social History Tobacco Use Types Packs/Day Years [...] high school, GED, job training, learning the [place] language, technical skills, or developing parenting skills)? [...] 02/22/2024 7:36 PM Audrey Moreau RN * [place] Suicide Severity Rating Scale (Screener/Recent Self-Report) Question [...] Info) Description 02/10/2025 10:00 AM EDT Nutrition [facility] Medical [facility] [address] [place] [address] [place] [address] Adina Mccartney MD [address] [place] [address] Jeanie Gaitan LDN [address] [place] [address] [place] [address] 02/27/2025 10:10 AM EST Office Visit [facility] Rheumatology [address] [place] [address] Radha Zaman MD, MPH [address] [facility], [address] [place] [address] [email or web address] documented as of this encounter Procedures Procedure Name Priority Date/Time Associated Diagnosis Comments XR FOOT 3 OR MORE VIEWS (RIGHT) Urgent/patient waiting 01/01/2021 4:56 PM EDT Right foot sprain, initial encounter documented in this encounter Results * XR FOOT 3 OR MORE VIEWS (RIGHT) (01/01/2021 4:56 PM EDT) Anatomical Region Laterality Modality Foot Right Computed Radiogr aphy 01/01/2021 5:12 PM [...] documented as of this encounter Care Teams Chain Link Fence Installer Relationship Specialty Start Date End Date Modesto Ramirez CNP [address] [place] [address], [address] [place] [address] PCP - General Family Medicine 02/20/18 Chucho Limon MD [address] [place] [address], [address] [place] [address] Historical LMR Provider 01/30/17 04/23/21 Simeon Garzon MD [address] [place] [address] Psychiatry 02/24/20 Chucho Limon MD [address] [place] [address], [address] [place] [address] Insurance Assigned Provider 01/25/1912/23/22 documented as of this encounter Additional Source Comments The information contained in this document represents components of the legal health record. It is not the complete legal health record.[facility]
--- NOTE | 2025-01-16 12:26 | MHC.OFFVISPS ---
Intake Intake Visit Reasons: depression Allergies No Known Allergies Allergy (Verified 04/18/22 17:23) Medication List - Last Reconciled 01/16/25 by Simeon Garzon MD albuterol sulfate 90 mcg/actuation (Ventolin HFA) 1 inh inhalation QID PRN 30 days Concerta ER (methylphenidate HCl) 27 mg PO DAILY NS fluoxetine 20 mg PO DAILY gabapentin 600 mg PO BEDTIME meloxicam 15 mg PO DAILY zolpidem 5 mg PO BEDTIME PRN HPI- Psychiatric Chief Complaint: depression HPI Narrative: Pt seen in f/u mood has been stable with periods of anxiety . feels overwhelmed with stress work at times . They have been under financial stress. Sleep generally better only taking 300 mg gabapentin generally 1 glass wine nightly.Went to [place] in nov. I have recommended strongly patient discontinue alcohol use Past Psychiatric History: hx add chronic dysphoria Mental Status Exam Mental Status Exam Patient Appearance: Well Grooomed Patient Orientation: Person, Place, Time and Situation Level of Consciousness: Awake Patient Behavior: Appropriate Mood Description: Flat and Apprehensive (feels pressured at times ) Affect Description: Appropriate and Constricted Patient Cognition Impaired: No Ability to Follow Directions: Excellent Speech Pattern: Clear Memory Description: Intact Hallucinations: None Delusions: Not Present Thought Process: Intact Thought Content: negative for Suicidal Ideation or negative for Homicidal Ideation Depressive Symptoms: Insomnia (improving ) Judgement and Insight: Some impairment in relationship to needing to give up alcohol Telehealth Telehealth Telehealth Platform: [facility] Location of provider rendering services: practice address Location of patient: address on file Patient Identification confirmed using: Name, : Yes Telehealth method: video Patient verbally consented to treatment: Yes Patient verbally consented to billing insurance company: Yes Minutes spent on Phone/Video with Pt.: 20 Assessment and Plan Assessment & Plan (1) Dysthymia: Status: Acute Code(s): F34.1 - Dysthymic disorder (2) ADHD (attention deficit hyperactivity disorder), inattentive type: Status: Acute Code(s): F90.0 - Attention-deficit hyperactivity disorder, predominantly inattentive type Plan Encourage tapering and discontinuation of zolpidem over time again reviewed risks of chronic use of zolpidem and gabapentin and potential increased risk of dementia. Strongly urged sobriety understand continue Concerta fluoxetine low-dose zolpidem patient states she has no more than 1 drink daily Medications: Refilled Concerta ER (methylphenidate HCl) Partial Fill upon patient request. 27 mg PO DAILY 30 tabs 0RF NS fluoxetine 20 mg PO DAILY 90 caps 1RF zolpidem 5 mg PO BEDTIME PRN 30 tabs 3RF insomnia Counseling and coordination of Care Medication management counseling: Effectiveness, Side effects and Dosing range Diagnosis and Prognosis Counseling: Impact of diagnosis on life functions and Adequacy of current interventions Details: I spent [25] minutes reviewing the record, seeing the patient and documenting in the medical record. Counseling provided to the patient/caregiver as outlined below. Addressed patient/caregiver concerns regarding current medication regime including effective adherence. Addressed patient/caregiver concerns regarding diagnosis and prognosis including accuracy of diagnosis, prognosis over time, impact of diagnosis. Addressed patient/caregiver concerns regarding impact of recent stressors. 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
--- OUTSIDE RECORDS SUMMARY | 2025-01-16 15:28 | XMS_ITS ---
Author Name [facility] Organization Unknown Encounters Encounter Type Encounter Reason Primary Diagnosis Location Date Ambulatory [facility] 11/20/2024 Care Team Organization Name Specialty Phone Email Start Date End Da te [facility] 11/23
--- OUTSIDE RECORDS SUMMARY | 2025-01-16 15:28 | XMS_ITS | Encounter Summary ---
Author Organization [facility] Address [address] [place] [address] [place] [phone] Phone Care Team Providers Care Oracle Data Warehouse Developer Name Role Phone Dillonroshni Modesto MUSE Primary Care Provider [phone] Simeon Garzon MD Unavailable [phone] Charla Jim OD Unavailable [phone] Unavailable [phone] Encounter Details Date Type Department Care Team (Late st Contact Info) Description 03/03/2024 Procedure Pass [facility], [address] [address] Social History Tobacco Use Types Packs/Day Years [...] high school, GED, job training, learning the Korean language, technical skills, or developing parenting skills)? [...] housing situation today? I have juan manuel dennis 11/13/2023 How many times have you move [...] pramod e documented as of this encounter Plan of Treatment Upcoming Encounters Date Type Department Care Team (Late st Contact Info) Description 02/10/2025 10:00 AM EDT Nutrition [facility] [address] [place] [address] Adina Mccartney MD [address] [place] [address] Jeanie Gaitan LDN [address] [place] [address], [address] [place] [phone] 02/27/2025 10:10 AM EST Office Visit [facility] [address] [place] [address] [place] [address] Radha Zaman MD, MPH [address] [place] [address], [address] [place] [address] documented as of this encounter Visit Diagnoses Not on filedocumented in this encounter Additional Health Concerns Assessment Noted Time PHQ-2 Depression Total Score: 2 11/13/19 24 8:56 AM EDT documented as of this encounter Care Teams Oracle Data Warehouse Developer Relationship Specialty Start Date End Date Modesto Ramirez CNP [address] [place] [address], [address] [place] [address] [email or web address] PCP - General Family Medicine 02/20/18 Simeon Garzon MD [address] [place] [address] Psychiatry 02/24/20 Charla Jim OD [address] [place] [address] Optometry 08/19/21 Jeanie Gaitan, RD [address] [place] [address] 11/13/23 documented as of this encounter Additional Source Comments The information contained in this document represents components of the legal health record. It is not the complete legal health record.[facility]
--- OUTSIDE RECORDS SUMMARY | 2025-01-16 15:28 | XMS_ITS | Encounter Summary ---
Author Organization [facility] Address [address] [place] [address] [place] [address] Phone Care Team Providers Care Nurse Researcher Name Role Phone KettyModesto price ALMAZ Primary Care Provider [phone] Simeon Garzon MD Unavailable [phone] Charla Jim OD Unavailable [phone] Chucho Limon MD Unavailable Jeanie Gaitan RD Unavailable [phone] Encounter Details Date Type Department Care Team (Late st Contact Info) Description 08/10/2022 Procedure Pass [facility] Admitting Dept Virtual Department [address] [place] [address] Social History Tobacco Use Types Packs/Day Years Used Date Smoking Tobacco: Never Smokeless Tobacco: Never Alcohol Use Standard Drinks/Week Comments Yes 11 (1 standard drink = 0.6 oz pu re alcohol) (2022) Child or Family Care Answer Date Record ed Do you have problems with on e of the following making it difficult for you to work, study, or receive health care? No 08/19/2021 Education Answer Date Recorded Are you interested in help w ith more adult education (for example, completing high school, GED, job training, learning the Macedonian language, technical skills, or developing parenting skills)? No 08/19/2021 Food Answer Date Recorded Within the past 6 months we worried whether our food would run out before we got money to buy more. Never True 08/19/2021 Within the past 6 months the food we bought just didn't last and we didn't have enough money to get more. Never True Residential Stability Answer Date Recor ded What is your housing situation today? I have juan manuel dennis 08/19/2021 How many times have you move d in the past 12 months? Zero (I did not move) 08/19/2021 Paying for Meds Answer Date Recorded Do you have trouble paying for medicines? No 08/19/2021 Paying Utility Bills Answer Date Record ed Do you have trouble paying your heating or elect ricity bill? No 08/19/2021 Transportation Answer Date Recorded Has the lack of transportati on kept you from medical appointments or from getting medications? No 08/19/2021 Unemployment Answer Date Recorded Are you currently unemployed or working on a part-time or temporary basis, and looking for work? No 08/19/2021 Comments No Sex and Gender Information Value [...] Info) Description 02/10/2025 10:00 AM EDT Nutrition [facility] [address] [place] [address] [place] [address] Adina Mccartney MD [address] [place] [address] Jeanie Gaitan LDN [address] [place] [phone] 02/27/2025 10:10 AM EST Office Visit [facility] [address] [place] [address] [place] [address] Radha Zaman MD, MPH [address] [place] [address], [address] [place] [address] documented as of this encounter Visit Diagnoses Not on filedocumented in this encounter Additional Health Concerns Assessment Noted Time PHQ-2 Depression Total Score: 0 08/20/19 22 11:21 AM EDT documented as of this encounter Care Teams Nurse Researcher Relationship Specialty Start Date End Date Modesto Ramirez CNP [address] [place] [address], [address] [place] [address] PCP - General Family Medicine 02/20/18 Simeon Garzon MD [address] [place] [address] Psychiatry 02/24/20 Charla Jim OD [address] [place] [address] Optometry 08/19/21 Chucho Limon MD [address] [place] [address], [address] [place] [address] Insurance Assigned Provider 01/25/19 12/23/22 Jeanie Gaitan, HAYLIE [address] [place] [address] 11/13/23 documented as of this encounter Additional Source Comments The information contained in this document represents components of the legal health record. It is not the complete legal health record.[facility]
--- OUTSIDE RECORDS SUMMARY | 2025-01-16 15:28 | XMS_ITS | Encounter Summary ---
Author Organization [facility] Address [address] [facility] [address] [place] [address] Phone Care Team Providers Care Gravity Meter Observer Name Role Phone Modesto Ramirez CNP Primary Care Provider [phone] Simeon Garzon MD Unavailable [phone] Charla Jim OD Unavailable [phone] Unavailable Encounter Details Date Type Department Care Team (Late st Contact Info) Description 04/27/2023 Transcribe [facility] [address] [facility] 3rd Floor, [address] [place] [address] Modesto Ramirez CNP [address] [facility] [place] [address] [email or web address] Social History Tobacco Use Types Packs/Day Years Used Date Smoking Tobacco: Never Smokeless Tobacco: Never Alcohol Use Standard Drinks/Week Comments Yes 8 (1 standard drink = 0.6 oz pur e alcohol) (2022) Child or Family Care Answer Date Record ed Do you have problems with on e of the following making it difficult for you to work, study, or receive health care? No 11/08/2022 Education Answer Date Recorded Are you interested in help w ith more adult education (for example, completing high school, GED, job training, learning the Polish language, technical skills, or developing parenting skills)? No 11/08/2022 Are you concerned about learning? Not on file 11/08/2022 No 11/08/2022 Yes 11/08/2022 Food Answer Date Recorded Within the past 6 months we worried whether our food would run out before we got money to buy more. Never True 11/08/2022 Within the past 6 months the food we bought just didn't last and we didn't have enough money to get more. Never True Residential Stability Answer Date Recor ded What is your housing situation today? I have juan manuel sing 11/08/2022 How many times have you move d in the past 12 months? Zero (I did not move) 11/08/2022 Paying for Meds Answer Date Recorded Do you have trouble paying for medicines? No 11/08/2022 Paying Utility Bills Answer Date Record ed Do you have trouble paying your heating or elect ricity bill? No 11/08/2022 Transportation Answer Date Recorded Has the lack of transportati on kept you from medical appointments or from getting medications? No 11/08/2022 Unemployment Answer Date Recorded Are you currently unemployed or working on a part-time or temporary basis, and looking for work? No 08/19/2021 Digital Access Answer Date Recorded No 11/08/2022 Yes 11/08/2022 Do you have reliable internet access at home? Ye s 11/08/2022 Do you have a device (e.g., phone, tablet, computer) with a working camera? Yes 11/08/2022 SNAP & WIC Answer Date Recorded Do you receive benefits from SNAP (the Supplemental Nutrition Assistance Program) or the Food Stamp Program? No 11/08/2022 SNAP is a free program that can help you and your family get access to healthy foods, nutrition classes, utility discounts, and more. Would you be interested in learning more? No 11/08/2022 Can we help you enroll in SNAP? Not on file 11/08/2022 Benefits received from WIC? Not on file 10/15 WIC is a free program, interested in learning mo re? Not on file 11/08/2022 Can we help you enroll in WIC? Not on file 0 11/08/2022 Comments No Sex and Gender Information Value [...] Info) Description 02/10/2025 10:00 AM EDT Nutrition [facility] [address] [place] [address] [place] [address] Adina Mccartney MD [address] [place] [address], [address] [place] [address] [email or web address] Jeanie Gaitan LDN [address] [place] [address], [address] [place] [address] 02/27/2025 10:10 AM EST Office Visit [facility] [address] [place] [address] [place] [address] Radha Zaman MD, MPH [address] [place] [address], [address] [place] [address] documented as of this encounter Visit Diagnoses Not on filedocumented in this encounter Additional Health Concerns Assessment Noted Time PHQ-2 Depression Total Score: 0 11/09/19 23 8:08 AM EDT documented as of this encounter Care Teams Gravity Meter Observer Relationship Specialty Start Date End Date Modesto Ramirez CNP [address] [facility] [place] [address] PCP - General Family Medicine 02/20/18 Simeon Garzon MD [address] [facility] [place] [address] Psychiatry 02/24/20 Charla Jim OD [address] [place] [address] Optometry 08/19/21 Jeanie Gaitan, RD 22 [place] [address] 11/13/23 documented as of this encounter Additional Source Comments The information contained in this document represents components of the legal health record. It is not the complete legal health record.[facility]
--- OUTSIDE RECORDS SUMMARY | 2025-01-16 15:29 | XMS_ITS | Encounter Summary ---
Author Organization [facility] Address [address] [place] [address] Phone Care Team Providers Care Html Developer Name Role Phone KettyModesto price ALMAZ Primary Care Provider [phone] Simeon Garzon MD Unavailable [phone] Charla Jim OD Unavailable [phone] Unavailable [phone] Encounter Details Date Type Department Care Team (Late st Contact Info) Description 01/12/2025 [facility] RISK SCORES SYSTEM GENERATED External System Generated Encounter [address] [place] [id number] Unknown, Unknown, Social History Tobacco Use Types Packs/Day Years [...] high school, GED, job training, learning the Kinyarwanda language, technical skills, or developing parenting skills)? [...] Info) Description 02/10/2025 10:00 AM EDT Nutrition [facility] [address] [place] [address] [place] [address] Adina Mccartney MD [address] [place] [address], [address] [place] [address] Jeanie Gaitan LDN [address] [place] [phone] 02/27/2025 10:10 AM EST Office Visit [facility] [address] [place] [address] [place] [address] Radha Zaman MD, MPH [address] [place] [address], [address] [place] [address] documented as of this encounter Visit Diagnoses Not on filedocumented in this encounter Additional Health Concerns Assessment Noted Time PHQ-2 Depression Total Score: 2 11/13/19 24 8:56 AM EDT documented as of this encounter Care Teams Html Developer Relationship Specialty Start Date End Date Modesto Ramirez CNP [address] [place] [address], [address] [place] [address] [email or web address] PCP - General Family Medicine 02/20/18 Simeon Garzon MD [address] [place] [address] Psychiatry 02/24/20 Charla Jim OD [address] [place] [address] Optometry 08/19/21 Jeanie Gaitan, RD 22 [place] [address] 11/13/23 documented as of this encounter Additional Source Comments The information contained in this document represents components of the legal health record. It is not the complete legal health record.[facility]
--- OUTSIDE RECORDS SUMMARY | 2025-01-16 15:29 | XMS_ITS | Encounter Summary ---
Author Organization [facility] Address [address] [place] [address] [place] [address] Phone Care Team Providers Care Waiter/Waitress Club Name Role Phone Chucho Limon MD Unavailable [phone] Gypsy Martinez MD Unavailable Serge Zafar MD Unavailable Noemi Zaldivar MD Unavailable Marianela Trejo MD Unavailable [phone] Modesto Ramirez PERFORMANCE MANAGEMENT CONSULTANT Primary Care Provider [phone] Chucho Limon MD Unavailable [phone] Simeon Garzon MD Unavailable [phone] Charla Jim OD Unavailable [phone] Chucho Limon MD Unavailable [phone] Unavailable [phone] Encounter Details Date Type Department Care Team (Late st Contact Info) Description 11/26/2018 Ancillary Orders [facility] [address] [place] [address] Modesto Ramirez, PERFORMANCE MANAGEMENT CONSULTANT [address] [facility] [place] [address] [email or web address] Abnormal mammogram Social History Tobacco Use Types Packs/Day Years Used Date Smoking Tobacco: Never Smokeless Tobacco: Never Alcohol Use Standard Drinks/Week Comments Yes 0 (1 standard drink = 0.6 oz pure alcohol) 2-3 per night; discussed 10/15/2018 Comments No Sex and Gender Information Value [...] Info) Description 02/10/2025 10:00 AM EDT Nutrition [facility] [address] [place] [address] Adina Mccartney MD [address] [place] [address] Jeanie Gaitan LDN [address] [place] [address] 02/27/2025 10:10 AM EST Office Visit [facility] Rhe[facility] [address] [place] [address] Radha Zaman MD, MPH [address] [place] [address], [address] [address] Scheduled Orders Name Type Priority Associated Diagnoses Orde r Schedule US Breast (Left) Imaging Routine Abnormal mammogram 1 Occurrences starting 11/26/2018 until 11/26/2020 documented as of this encounter Results * BI MAMMOGRAM DIAGNOSTIC WITH TOMOSYNTHESIS WITH CAD (LEFT) (12/06/2018 2:59 PM EDT) Anatomical Region Laterality Modality Breast Left Left Mammography 12/06/2018 3:05 PM EDT Impressions 12/06/2018 3:15 PM EDT Stable left breast microcalcifications. No definite mammographic evidence of malignancy. Recommend return to routine annual surveillance. Findings relayed to the patient via the technologist. BI-RADS CATEGORY: 2 - Benign finding. DENSITY: There are scattered fibroglandular densities. POS - [id number] Narrative 12/06/2018 3:15 PM EDT 53-year-old female who presents for callback mammogram for left breast calcifications. Comparison made to previous on 11/26/2018 and as far back as 12/06/2005. Interpretation made in conjunction with computer-aided detection and tomosynthesis. Magnification left CC and ML views and non-spot left ML view obtained. The left breast is composed of scattered areas of fibroglandular density. On the cc view there are chronic scattered coarse microcalcifications without pleomorphic changes. On the magnification ML view the microcalcifications in the inferior breast are unchanged dating back to at least 2011 and are not dissimilar in morphology to other chronic scattered microcalcifications in the breast. No mass or distortion. Procedure Note Twin Scott MD - 12/06/2018 53-year-old female who presents for callback mammogram for left breastcalcifications. Comparison made to previous on 11/26/2018 and as far backas 12/06/2005. Interpretation made in conjunction with computer-aideddetection and tomosynthesis. Magnification left CC and ML views and non-spot left ML view obtained.The left breast is composed of scattered areas of fibroglandular density.On the cc view there are chronic scattered coarse microcalcificationswithout pleomorphic changes. On the magnification ML view themicrocalcifications in the inferior breast are unchanged dating back to atleast 2011 and are not dissimilar in morphology to other chronic scatteredmicrocalcifications in the breast. No mass or distortion. IMPRESSION: Stable left breast microcalcifications. No definite mammographic evidenceof malignancy. Recommend return to routine annual surveillance. Findingsrelayed to the patient via the technologist. BI-RADS CATEGORY: 2 - Benign finding. DENSITY: There are scattered fibroglandular densities. POS - [id number] Vivileonel James PERFORMANCE MANAGEMENT CONSULTANT IMG MG EXAMS Final Res ult documented in this encounter Visit Diagnoses Diagnosis Abnormal mammogram Abnormal mammogram, unspecified Abnormal mammogram Abnormal mammogram, unspecified documented in this encounter Additional Health Concerns Assessment Noted Time PHQ-2 Depression Total Score: 0 10/16/19 19 10:22 AM EDT documented as of this encounter Care Teams Waiter/Waitress Club Relationship Specialty Start Date End Date Modesto Ramirez CNP [address] [place] [address], [address] [place] [address] PCP - General Family Medicine 02/20/18 Chucho Limon MD [address] [place] [address], [address] [place] [address] Historical LMR Provider 01/30/17 04/23/21 Gypsy Martinez MD [address] [place] [address], 2nd [place] [address] Historical LMR Provider 01/30/17 09/28/20 Serge Zafar MD [address] [place] [address], [address] [place] [address] Historical LMR Provider 01/30/17 02/23/20 Neomi Zaldivar MD [address] [place] [address] Orthopedics [facility] Sports Medicine, [place] [address] Historical LMR Provider 01/30/1702/22 Marianela Trejo MD [address] [facility] [place] [address] [email or web address] Historical LMR Provider 01/30/17 02/23/20 Chucho Limon MD [address] [place] [address], [address] [place] [address] [email or web address] Insurance Assigned Provider 01/25/19 09/28/20 Simeon Garzon MD [address] [place] [address] Psychiatry 02/24/20 Charla Jim OD [address] [place] [address] Optometry 08/19/21 Chucho Limon MD [address] [place] [address], [address] [place] [address] [email or web address] Insurance Assigned Provider 01/25/19 12/23/22 Jeanie Gaitan, RD 22 [place] [address] 11/13/23 documented as of this encounter Additional Source Comments The information contained in this document represents components of the legal health record. It is not the complete legal health record.[facility]
--- OUTSIDE RECORDS SUMMARY | 2025-01-16 15:29 | XMS_ITS | Encounter Summary ---
Author Organization [facility] Address [address] [place] [address] [place] [address] Phone Care Team Providers Care Reliability Engineer Name Role Phone KettyModesto price ALMAZ Primary Care Provider [phone] Simeon Garzon MD Unavailable Charla Jim OD Unavailable [phone] Chucho Limon MD Unavailable Jeanie Gaitan RD Unavailable [phone] Encounter Details Date Type Department Care Team (Late st Contact Info) Description 02/28/2022 Procedure Pass [facility], [address] [address] Social History Tobacco Use Types Packs/Day Years Used Date Smoking Tobacco: Never Smokeless Tobacco: Never Alcohol Use Standard Drinks/Week Comments Yes 21 (1 standard drink = 0.6 oz pu re alcohol) (2021) Child or Family Care Answer Date Record ed Do you have problems with on e of the following making it difficult for you to work, study, or receive health care? No 08/19/2021 Education Answer Date Recorded Are you interested in help w ith more adult education (for example, completing high school, GED, job training, learning the Burkinan language, technical skills, or developing parenting skills)? [...] Info) Description 02/10/2025 10:00 AM EDT Nutrition [facility] [address] [place] [address] [place] [address] Adina Mccartney MD [address] [place] [address], [address] [place] [address] Jeanie Gaitan LDN [address] [place] [address] 02/27/2025 10:10 AM EST Office Visit [facility] Rheumatology [address] [place] [address] [place] [address] Radha Zaman MD, MPH [address] [place] [address], [address] [place] [address] [email or web address] documented as of this encounter Visit Diagnoses Not on filedocumented in this encounter Additional Health Concerns Assessment Noted Time PHQ-2 Depression Total Score: 0 08/20/19 22 11:21 AM EDT documented as of this encounter Care Teams Reliability Engineer Relationship Specialty Start Date End Date Modesto Ramirez CNP [address] [facility], [address] [place] [address] [email or web address] PCP - General Family Medicine 02/20/18 Simeon Garzon MD [address] [place] [address] Psychiatry 02/24/20 Charla Jim OD [address] [place] [address] Optometry 08/19/21 Chucho Limon MD [address] [place] [address], [address] [place] [address] [email or web address] Insurance Assigned Provider 01/25/19 12/23/22 Jeanie Gaitan, RD 22 [place] [address] 11/13/23 documented as of this encounter Additional Source Comments The information contained in this document represents components of the legal health record. It is not the complete legal health record.[facility]
--- OUTSIDE RECORDS SUMMARY | 2025-01-16 15:29 | XMS_ITS | Encounter Summary ---
Author Organization [facility] Address [address] [place] [address] [place] [address] Phone Care Team Providers Care Fire Officer Name Role Phone Modesto Ramirez CNP Primary Care Provider [phone] Simeon Garzon MD Unavailable [phone] Charla Jim OD Unavailable [phone] Unavailable [phone] Encounter Details Date Type Department Care Team (Late st Contact Info) Description 03/28/2023 Procedure Pass [facility] [address] [place] [address] Social History Tobacco Use Types Packs/Day Years [...] high school, GED, job training, learning the Czech language, technical skills, or developing parenting skills)? [...] situation today? I have juan manuel dennis 11/08/2022 How many times have you move [...] Description 02/10/2025 10:00 AM EDT Nutrition [facility] [address] [place] [address] [place] [address] Adina Mccartney MD [address] [place] [address], [address] [place] [address] Jeanie Gaitan LDN [address] [place] [address], [address] [place] [address] 02/27/2025 10:10 AM EST Office Visit [facility] [address] [place] [address] [place] [address] Radha Zaman MD, MPH [address] [place] [address], [address] [place] [address] documented as of this encounter Visit Diagnoses Not on filedocumented in this encounter Additional Health Concerns Assessment Noted Time PHQ-2 Depression Total Score: 0 11/09/19 23 8:08 AM EDT documented as of this encounter Care Teams Fire Officer Relationship Specialty Start Date End Date Modesto Ramirez CNP [address] [place] [address], [address] [place] [address] PCP - General Family Medicine 02/20/18 Simeon Garzon MD [address] [facility] [place] [address] Psychiatry 02/24/20 Charla Jim OD [address] [place] [address] Optometry 08/19/[address] [place] [address] 11/13/23 documented as of this encounter Additional Source Comments The information contained in this document represents components of the legal health record. It is not the complete legal health record.[facility]
--- OUTSIDE RECORDS SUMMARY | 2025-01-16 15:29 | XMS_ITS | Clinical Summary ---
Author Organization [facility] Address [address] [place] [id number] Phone Care Team Providers Care Freight Loading Supervisor Name Role Phone KettyMarcel price ALMAZ Primary Care Provider [phone] Simeon Garzon MD Unavailable [phone] Charla Jim OD Unavailable [phone] Unavailable [phone] Allergies Active Allergy Reactions Criticality Noted Date Comments Chlorhexidine Towelette Rash Low 05/11/2017 Medications methylphenidate HCl (CONCERTA) 27 MG CR tablet Take 27 mg by mouth every morning. Active gabapentin (NEURONTIN) 600 MG tablet Take 600 mg by mouth every evening. Says she usually takes 300mg 2 9 Active zolpidem (AMBIEN) 5 MG tablet TAKE 1 TABLET BY MOUTH EVERY DAY AT BEDTIME NEEDED 0 Active loratadine (CLARITIN) 10 mg tablet Take 10 mg by mouth daily. Active FLUoxetine (PROZAC) 20 MG capsule Take 1 capsule by mouth every morning. 3 Active fluticasone propionate (FLONASE) 50 mcg/actuation nasal spray 1 spray by Nasal route daily. Active colchicine (COLCRYS) 0.6 mg tabletIndicatio ns:Osteoarthrit is of fingers of both hands,Encounter for monitoring chronic NSAID therapy Take 1 tablet (0.6 mg total) by mouth daily. 30 tablet 5 Active Additional Information Patient not taking.Reported on 12/19/2024 diclofenac sodium (VOLTAREN) 1 % GelIndications: Osteoarthritis of fingers of both hands Apply 2 g topically 4 (four) times a day. As needed for finger / thumb joint pain 100 g Active Additional Information Patient not taking.Reported on 12/19/2024 meloxicam (MOBIC) 7.5 MG tablet Take 1 tablet (7.5 mg total) by mouth daily. 90 tablet 1 Active Active Problems Problem Noted Date Diagnosed Date Right hand pain 09/05/2024 Assessment & Plan (09/05/2024 12:58 PM EDT): Right ulnar pain, onset following fall with outstretched right arm/wrist to this past February. She may benefit from orthopedics evaluation for this posttraumatic concern. Postmenopausal 09/05/2024 Assessment & Plan (09/05/2024 12:59 PM EDT): Baseline DEXA Chronic bilateral low back pain with bilateral s ciatica 03/03/2024 Assessment & Plan (03/03/2024 11:23 AM EST): Referral placed to physical therapy. I don't know that repeat x-ray would be of much utility today but if she does not respond to PT I would update imaging and consider physiatry referral. Menopausal state 11/13/2023 Assessment & Plan (11/13/2023 9:34 AM EDT): She would like to have a conversation about HT with [facility] and will schedule this. Smell or taste sensation disturbance 03/28/2023 Assessment & Plan (11/13/2023 9:36 AM EDT): Await ENT consult this week. She plans to discuss her jaw symptoms with them as well. Assessment & Plan (03/28/2023 1:32 PM EST): Unclear etiology. Labs are reviewed from December. Will update some blood work today. I recommended that she hold her potassium/magnesium, and chromium supplements. Continue loratadine. Ensure adequate water intake. Try Flonase 1 spray daily for the next month. Referral is placed to ENT for further evaluation. Family history of bicuspid aortic valve 03/28/20 Assessment & Plan (03/28/2023 1:33 PM EST): I recommended echocardiogram to evaluate aortic valve given family history. She is amenable to this plan. Encounter for general adult medical examination with abnormal findings 11/08/2022 Assessment & Plan (11/13/2023 9:34 AM EDT): Eligible for Shingrix at the pharmacy. Warning signs of breast cancer and breast self-awareness reviewed. We discussed mammography intervals and she elects q2 years; she understands the potential for missed malignancy between screening. Next screening pap smear 2026 per ASCCP guidelines. Referred to [facility] to discuss HT at her request. Next screening colonoscopy 2032 per GI. Fasting labs before nutrition appointment in the fall. Assessment & Plan (11/08/2022 8:33 AM EDT): Shingrix recommended at the pharmacy. Covid and flu shots recommended this fall. Warning signs of breast cancer and breast self-awareness reviewed. Next screening pap smear 2026 per ASCCP guidelines. Next screening colonoscopy 2022 per GI. Continue regular dental and eye care. Patellar bursitis of left knee 11/08/2022 Assessment & Plan (11/08/2022 8:35 AM EDT): No significant swelling present today. X-ray is pending from yesterday; she elected to have this because of concern that she fractured this in April. She slipped and fell 6 weeks ago with right knee injury. Return if pain persists. Prediabetes 05/09/2022 Assessment & Plan (11/13/2023 9:36 AM EDT): Continue regular physical activity, healthy food choices. Assessment & Plan (11/08/2022 8:35 AM EDT): We discussed that her alcohol use, though reduced, is likely contributing. Continue to work on reduction with goal of 0-1 drinks/day on average. She will schedule a follow up with Jeanie Gaitan and have fasting labs prior to that visit. Encounter for monitoring chronic NSAID therapy 0 05/09/2022 Assessment & Plan (09/05/2024 12:58 PM EDT): Risks of long-term use of oral NSAID's reviewed with patient in detail today. Assessment & Plan (03/03/2024 11:23 AM EST): Continue to work on reducing meloxicam to 7.5 mg dose. Assessment & Plan (11/13/2023 9:35 AM EDT): On meloxicam chronically for joint pain. She is a massage therapist. I asked her to try reducing this to 7.5 mg daily to see if the same benefit remains. She is aware of the risks of longterm NSAID use on GI tract, cardiovascular risks. Assessment & Plan (11/08/2022 8:34 AM EDT): Check CMP with next labs. She is aware of the risk of renal dysfunction, GI bleed, cardiovascular disease and elects to continue. Allergies 05/09/2022 Adenomatous polyp of colon 08/19/2021 DDD (degenerative disc disease), lumbar 08/20/19 22 Assessment & Plan (11/13/2023 9:35 AM EDT): Stable. She is trying to add more stretching. History of condyloma acuminatum 12/02/2018 Assessment & Plan (12/02/2018 8:58 AM EDT): History of anal condylomata discussed with patient. Advised pt I am not aware of current guidelines for annual Pap smear in light of her history negative HPV and cervical cancer screening, no recurrence of condylomata, same-sex partner, not immunocompromised. Suggested she discuss further with Dr Martinez as there are no notes as to needed f/u care. Attention-deficit hyperactiv ity disorder, predominantly inattentive type 10/15/2018 Assessment & Plan (11/13/2023 9:35 AM EDT): Managed through psychiatry. Osteoarthritis of fingers of both hands 04/06/20 17 Overview (09/05/2024): No psoriasis, Raynaud's, chronic diarrhea, or iritis history Assessment & Plan (09/05/2024 12:56 PM EDT): Predominantly involving first CMCs and DIPs bilaterally. Symptoms have been severe enough to require her to decrease her work as a massage therapist from full-time to part-time in the past several years. She does have incomplete benefit with current meloxicam dose of 7.5 mg daily. We discussed risk-benefit ratio of long-term use of oral NSAIDs at length today. She is amenable to trial of off label colchicine as an alternative anti-inflammatory; goal is to decrease her meloxicam requirement/decrease her joint pain on current meloxicam dose. She can also try topical diclofenac as needed. There is really no clinical evidence concerning for underlying or comorbid inflammatory arthritis and therefore no clear indication for ongoing rheumatology specific management. However, I am certainly happy to reevaluate if she requires intra-articular steroid injection to her CMC joints. Assessment & Plan (03/03/2024 11:23 AM EST): No swelling present today. Known CMC arthritis in 2018. Deformities of the joints present today. I did place a referral to rheumatology given mild breakthrough discomfort as she reduces the meloxicam. OT referral is placed. Condyloma acuminatum of anus 04/06/2017 Assessment & Plan (05/25/2017 9:15 AM EST): An anal Pap was performed: Dacron swab was inserted into the anal canal until it met natural resistance. Pressure was applied against the swab while withdrawing in attempt to retrieve cells from the transition zone. Swab was placed in fixant and sent to pathology. This was repeated with a second swab and a brush. I will call her with the results. Assessment & Plan (05/11/2017 1:04 PM EST): An anal Pap was performed: Dacron swab was inserted into the anal canal until it met natural resistance. Pressure was applied against the swab while withdrawing in attempt to retrieve cells from the transition zone. Swab was placed in fixant and sent to pathology. This was repeated with a second swab and a brush. I will call her with the results. Depression with anxiety 04/06/2017 Assessment & Plan (11/13/2023 9:35 AM EDT): Managed by psychiatry. No recent medication adjustments. Assessment & Plan (11/08/2022 8:34 AM EDT): Managed by psychiatry who also manages sleep medications and stimulant therapy. Fibroid uterus 04/06/2017 Ganglion cyst 04/06/2017 Stenosis of cervix 04/06/2017 Resolved Problems Problem Noted Date Diagnosed Date Resolved Date Chronic pain of both knees 11/08/2022 0 11/08/2022 Tooth pain 11/08/2022 11/13/2023 Assessment & Plan (11/08/2022 8:36 AM EDT): Treated with penicillin by a family member. Dental visit is scheduled next week. If pain worsens before then she needs to see her dentist sooner. Postmenopausal bleeding 12/02/201810/15 Assessment & Plan (12/02/2018 8:53 AM EDT): Discussed with patient possible etiologies of postmenopausal bleeding including atrophy, hormonal, polyp, endometrial hyperplasia, carcinoma. We will plan to proceed with pelvic ultrasound to better evaluate for endometrial abnormality/thickness and reevaluate patient's history of fibroid uterus. Plan to call patient with results and follow-up. Alcohol consuption of more t pike two drinks per day 10/15/2018 02/24/2020 Abnormal uterine bleeding (AUB) 04/06/2017 08/19/2021 Overactive child 04/06/2017 10/15/2018 Encounters Date Type Department Care Team Description 01/12/2025 [facility] RISK SCORES SYSTEM GENERATED External System Generated Encounter [address] [place] [address] Unknown, Unknown, 12/24/2024 10:02 AM EDT - 12/24/2024 11:59 PM EDT Hospital Encounter [facility] [address] [address] Tahir Liu MD, MPH Discharge Disposition: Home or Self Care 12/19/2024 3:00 PM EDT Office Visit [facility] [address] [address] Anette Brown PA-C Laceration of left little finger without foreign body without damage to nail, initial encounter (Primary Dx) from Last 3 Months Immunizations Immunization Administration Dates Next Due COVID-19 (Pre-02/05) Moderna Vaccine, mRNA, PF 06/23/2020,05/26/2020 INFLUENZA, SPLIT VIRUS, TRIVALENT PF 01/08/2024, 03/20/2016 INFLUENZA, SPLIT VIRUS, TRIV ALENT W/ PRESERVATIVE IM 02/06/2013,02/14/2012 Influenza Quadrivalent MDCK Preservative Free IM 03/07/2021 Influenza Quadrivalent MDCK w/Preservative IM 06/18/2019 Influenza Quadrivalent Prese rvative Free IM 02/03/2023,05/09/2022,01/17/2020,2017,04/20/2015 Td (adult) 5 Lf Tetanus Toxo id, PF, Adsorbed 10/10/2009 Td (adult),2 Lf Tetanus Toxo id, PF, Adsorbed 08/02/2022 Tdap 04/20/2015 Zoster recombinant 04/25/2024,01/18/2024 Family History Medical History Relation Comments Graves' disease Brother 1 No Known Problems Brother 2 Bicuspid Aortic Valve Brother 3 Food intolerance Brother 3 Food sensitviti es but not celiac disease Coronary artery disease Father MIs, CAB G Diabetes type II Father Treated with st eroids for back issues Kidney failure Father Other Father Pseudogout. Transient ischemic attack Father No Known Problems Maternal Grandfather No Known Problems Maternal Grandmother Heart disease Mother Work up not plan john Irritable bowel syndrome Mother Lung cancer Mother Diagnosed late 7 0s. Former smoker Macular degeneration Mother No Known Problems Paternal Grandfather Breast cancer Paternal Grandmother Diagnosed l ate 80s Diabetes Paternal Grandmother Diverticulitis Sister Endometriosis Sister Irritable bowel syndrome Sister Neutropenia Sister Colon cancer Neg Hx Glaucoma Neg Hx Prostate cancer Neg Hx Relation Status Comments Brother 1 Alive Brother 2 Alive Brother 3 Alive Father (Age 87) Maternal Grandfather Maternal Grandmother Mother Alive Paternal Grandfather Paternal Grandmother Sister Alive Social History Tobacco Use Types Packs/Day Years Used Date Smoking Tobacco: Never Smokeless Tobacco: Never Tobacco Cessation:Counseling Given: Not Answered Alcohol Use Standard Drinks/Week Comments Yes 6 [...] high school, GED, job training, learning the [place] language, technical skills, or developing parenting skills)? [...] Not on file Not on pramod e Last Filed Vital Signs Vital Sign Reading Time Taken Comments Blood Pressure 115/67 12/19/2024 3:31 PM EDT Pulse 70 12/19/2024 3:31 PM EDT Temperature 36.6 C (97.8 F) 12/19/2024 3:31 PM EDT Respiratory Rate 16 12/19/2024 3:31 PM EDT Oxygen Saturation 99% 12/19/2024 3:31 PM EDT Inhaled Oxygen Concentration - - Weight 67.1 kg (148 lb) 12/19/2024 3:31 PM EDT Height 167.6 cm (5' 6 ) 12/19/2024 3:31 PM EDT Body Mass Index 23.89 12/19/2024 3:31 PM EDT Plan of Treatment Upcoming Encounters Date Type Department Care Team (Late st Contact Info) Description 02/10/2025 10:00 AM EDT Nutrition [facility] [address] [place] [address] [place] [address] Adina Mccartney MD [address] [place] [address], [address] [place] [address] Jeanie Gaitan, VALERIA [address] [place] [address], [address] [place] [id number] 02/27/2025 10:10 AM EST Office Visit [facility] [address] [place] [address] [place] [address] Tahir Liu MD, MPH [address] [place] [address], [address] [place] [address] Health Maintenance Due Date Last Done Comments COLOGUARD 11/22/2008 FIT TEST 11/22/2008 FOBT 11/22/2008 SIGMOIDOSCOPY 11/22/2008 VIRTUAL COLONOSCOPY 11/22/2008 PNEUMOCOCCAL VACCINES (50+ years) (1 of 1 - PCV) 11/22/2013 DEPRESSION SCREENING 11/12/2024 11/13/2023 INFLUENZA VACCINE (#1) 2024 , 02/03/2023, 05/09/2022, Additional history exists PAP SMEAR 08/19/2026 08/19/2021, 07/16, 07/26/2016 MAMMOGRAM 08/27/2026 08/27/2024, 02/14, 11/26/2018, Additional history exists LIPID PANEL 07/01/2029 07/01/2024, 11/2020, 04/23/2020, Additional history exists Adult Td,Tdap Booster 08/02/2032 08/02/2022 , 04/20/2015, 10/10/2009 COLONOSCOPY 08/10/2032 08/10/2022, 04/28/2016 COLORECTAL CANCER SCREENING 08/10/2032 RSV VACCINE (1 - 1-dose 75+ series) 11/22/2038 HEPATITIS C SCREENING Completed 04/21/2015 HIV ONE-TIME SCREENING (18-65 YEARS) Completed 01/12/2023 COVID-19 VACCINE Completed 01/08/2024, , 01/16/2022, Additional history exists ZOSTER VACCINES Completed 04/25/2024, 01/18/2024 SMOKING STATUS SCREENING (Once After 26 Yrs) Completed 12/19/2024 HEPATITIS A VACCINES Aged Out No long er eligible based on patient's age to complete this topic HIB VACCINES Aged Out No longer eligi ble based on patient's age to complete this topic MENINGOCOCCAL VACCINES (ACWY) Aged Out No longer eligible based on patient's age to complete this topic MENINGOCOCCAL VACCINES (B) Aged Out N o longer eligible based on patient's age to complete this topic Medical Devices Not on file Procedures Procedure Name Priority Date/Time Associated Diagnosis Comments BD DXA AXIAL (SPINE) WITH HIP Routine 12/24/2024 10:17 AM EDT Postmenopausal BI MAMMOGRAM SCREENING WITH TOMOSYNTHESIS WITH CAD (BILATERAL) Routine 08/27/2024 10:44 AM EDT Screening mammogram for breast cancer LIPID PANEL Routine 07/01/2024 9:53 AM EDT Screening cholesterol level ENDOSCOPY, COLON 08/10/2022 10:4 8 AM EDT PAP TEST Routine 08/19/2021 12:00 AM EDT OUTSIDE HEPATITIS C VIRUS SCREENING Routine 04/21/2015 from Last 3 Months or Most Recently Relevant to Health Maintenance Results * BD DXA AXIAL (SPINE) WITH HIP (12/24/2024 10:17 AM EDT) Anatomical Region Laterality Modality Bone Density Bone Density 12/24/2024 10:1 5 AM EDT Impressions 12/25/2024 10:37 AM EDT Interpretation: Osteopenia. Narrative 12/25/2024 10:37 AM EDT Referred By: TAHIR LIU Indications: Postmenopausal Scanner: [employer] with serial# of [id number] located at [facility] Bone Density Scan (DXA) 12/24/24 Details of prior DXA scans are available by clicking View Full Report BMD T- Z- Skeletal Site gm/cm2 score score BMD Change Since Prior Scan ------ ----- ----- PA Spine (L1 L2 L3) 0.963 -0.50 0.90 N/A Total Hip (Left) 0.805 -1.10 -0.10 N/A Femoral Neck (Left) 0.644 -1.80 -0.50 N/A Total Hip (Right) 0.875 -0.60 0.50 N/A Femoral Neck (Right) 0.696 -1.40 0.00 N/A ------ ----- ----- * Denotes significant change when >= 0.022 g/cm2 for the spine, 0.027 g/cm2 for the total hip, 0.029 g/cm2 for the femoral neck. Interpretation: Osteopenia. Technical Quality: Imaging of all sites was of adequate quality. FRAX: Based on FRAX(r) 3.6 ([place] White female), this patient's likelihood of hip fracture is 1% and major osteoporotic fracture is 9% over the next 10 years. The patient reported no risks of fracture. Reviewed By: Parul Hills MD on 12/25/2024 10:37:25 Additional Information: -World Health Organization criteria classify adults based on lowest T-score at PA spine, hip or forearm: Normal (T-score >= -1.0), Osteopenia (T-score between -1 and -2.5), or Osteoporosis (T-score <= -2.5). At [facility], T-scores are compared to peak bone density of a young white gender matched reference population. - For premenopausal women and men under the age of 50, Z-scores (comparison to age, gender, and ethnicity matched reference population) are used: Above expected range for age (Z-score >= 2.0), Within expected range of age (Z-score 1.9 to -1.9), or Below expected range for age (Z-score <= -2.0). - The Bone Health and Osteoporosis Foundation recommends that treatment be considered in men aged more than 50 years and in postmenopausal women with ANY of the following: Prior hip or vertebral fractures; T-score of <= -2.5 at the PA spine or hip; or 10 year fracture probability by FRAX of >= 3% for the hip or >= 20% for major osteoporotic fracture. - The FRAX algorithm (https://www.quyen.ac.uk/FRAX/tool.aspx) is designed to predict 10-year fracture risk in treatment-naive adults between the ages of 40 and 90. It is not intended to be used in those receiving pharmacologic osteoporosis treatment. - The TBS is derived from the texture of the DXA spine image and has been shown to be related to bone microarchitecture and fracture risk. This data provides information independent of BMD value. It adds to fracture risk assessment with a FRAX adjusted for TBS score. If your patient had a TBS and qualified for a FRAX score, the reported FRAX score has been adjusted for TBS. TBS Score Interpretation 1.350 and greater Normal bone microarchitecture 1.200 to 1.350 Partially degraded bone microarchitecture 1.200 and less Degraded bone microarchitecture - Including race/ethnicity in the generation of T- or Z-scores or in the FRAX calculation is complicated, and currently undergoing active review to ensure that we can give patients the best information on their risk of fracture. - Some prior studies may not be compatible with our comparison software. - Click on View Full Report to see subsequent pages with images and prior bone density results. Procedure Note Parul Hills MD - 12/25/2024 Referred By: TAHIR LIU Indications: Postmenopausal Scanner: [employer] with serial# of [id number] located at [facility] Bone Density Scan (DXA) 12/24/24 Details of prior DXA scans are available by clicking View Full Report BMD T- Z- Skeletal Site gm/cm2 score score BMD Change Since Prior Scan ------ ----- PA Spine (L1 L2 L3) 0.963 -0.50 0.90 N/A Total Hip (Left) 0.805 -1.10 -0.10 N/A Femoral Neck (Left) 0.644 -1.80 -0.50 N/A Total Hip (Right) 0.875 -0.60 0.50 N/A Femoral Neck (Right) 0.696 -1.40 0.00 N/A ------ ----- * Denotes significant change when >= 0.022 g/cm2 for the spine, 0.027g/cm2 for the total hip, 0.029 g/cm2 for the femoral neck. Interpretation: Osteopenia. Technical Quality: Imaging of all sites was of adequate quality. FRAX: Based on FRAX(r) 3.6 ([place] White female), this patient's likelihoodof hip fracture is 1% and major osteoporotic fracture is 9% over the next 10 years. The patient reported no risks of fracture. Reviewed By: Parul Hills MD on 12/25/2024 10:37:25 Additional Information: -World Health Organization criteria classify adults based on lowestT-score at PA spine, hip or forearm: Normal (T-score >= -1.0), Osteopenia (T-score between -1 and -2.5), or Osteoporosis (T-score <= -2.5). At [facility], T-scores are compared to peak bone density of a young white gender matched reference population. - For premenopausal women and men under the age of 50, Z-scores(comparison to age, gender, and ethnicity matched reference population) are used:Above expected range for age (Z-score >= 2.0), Within expected range of age (Z-score 1.9 to -1.9), or Below expected range for age (Z-score <= -2.0). - The Bone Health and Osteoporosis Foundation recommends that treatment be considered in men aged more than 50 years and in postmenopausal women with ANY of the following: Prior hip or vertebral fractures; T-score of <= -2.5 at the PA spine or hip; or 10 year fracture probability by FRAX of >= 3%for the hip or >= 20% for major osteoporotic fracture. - The FRAX algorithm (https://www.quyen.ac.uk/FRAX/tool.aspx) is designed to predict 10-year fracture risk in treatment-naive adultsbetween the ages of 40 and 90. It is not intended to be used in those receiving pharmacologic osteoporosis treatment. - The TBS is derived from the texture of the DXA spine image and has been shown to be related to bone microarchitecture and fracture risk. This data provides information independent of BMD value. It adds to fracture risk assessment with a FRAX adjusted for TBS score. If your patient had a TBSand qualified for a FRAX score, the reported FRAX score has been adjusted for TBS. TBS Score Interpretation 1.350 and greater Normal bone microarchitecture 1.200 to 1.350 Partially degraded bone microarchitecture 1.200 and less Degraded bone microarchitecture - Including race/ethnicity in the generation of T- or Z-scores or in the FRAX calculation is complicated, and currently undergoing active review to ensure that we can give patients the best information on their risk of fracture. - Some prior studies may not be compatible with our comparison software. - Click on View Full Report to see subsequent pages with images andprior bone density results. IMPRESSION: Interpretation: Osteopenia. us Tahir Liu MD, MPH IMG BD BONE DENSITY DEXA Final Result * BI MAMMOGRAM SCREENING WITH TOMOSYNTHESIS WITH CAD (BILATERAL) (08/27/2024 10:44 AM EDT) Anatomical Region Laterality Modality Breast Left, Breast Right, Breast Bilateral Bila teral Mammography 08/27/2024 2:24 PM EDT Impressions 08/27/2024 2:25 PM EDT No mammographic evidence of malignancy in either breast. Annual screening mammography is recommended. BI-RADS 1 NEGATIVE The patient will be notified of the results and recommendations. Narrative 08/27/2024 2:25 PM EDT BI MAMMOGRAM SCREENING WITH TOMOSYNTHESIS WITH CAD (BILATERAL) Additional patient information: Screening. COMPARISON: Comparison is made with relevant prior imaging. Breast composition: There are scattered areas of fibroglandular density. FINDINGS: No abnormal masses, suspicious calcifications, or other significant findings are identified mammographically in either breast. There has been no significant interval change. Procedure Note Kaye Garcia MD - 08/27/2024 BI MAMMOGRAM SCREENING WITH TOMOSYNTHESIS WITH CAD (BILATERAL) Additional patient information: Screening. COMPARISON: Comparison is made with relevant prior imaging. Breast composition: There are scattered areas of fibroglandular density. FINDINGS: No abnormal masses, suspicious calcifications, or other significantfindings are identified mammographically in either breast. There has been no significant interval change. IMPRESSION: No mammographic evidence of malignancy in either breast. Annual screening mammography is recommended. BI-RADS 1 NEGATIVE The patient will be notified of the results and recommendations. us Marcel Anguiano [facility] IMG MG EXAMS Final Res ult * (ABNORMAL) Lipid panel (07/01/2024 9:53 AM EDT) HDL 64 mg/dL [facility] Comment: Interpretation <40 mg/dL: Low HDL cholesterol (major risk factor for CHD) Greater than or equal to 60 mg/dL: High HDL cholesterol ( negative risk factor for CHD) HDL - cholesterol is affected by a number of factors, e.g. smoking, excerise, hormones, sex and age. CHOLESTEROL 256(H) 0 - 240 mg/dL [facility] TRIGLYCERIDES 110 30 - 160 mg/dL [facility] LDL 170(H) 50 - 129 mg/dL [facility] Comment: LDL levels in terms of risk for coronary heart disease: <100 mg/dL: Optimal 100-129 mg/dL: Near or above optimal 130-159 mg/dL: Borderline high 160-189 mg/dL: High >190 mg/dL: Very High CARDIAC RISK RATIO 4.0 3.3 - 4.4 C [facility] Blood 07/01/2024 9:53 AM EDT 07/01/2024 9:56 AM EDT Marcel Anguiano [facility] LAB BLOOD ORDERABLES Brenda l Result [facility] [address] [place] [address] * ENDOSCOPY, COLON (08/10/2022 10:48 AM EDT) Narrative Transcriptions Ruiz Kennedy MD - 08/10/2022 10:48 AM EDT [facility] Patient Name: Kaye Chow Attending MD:: RUIZ BRENT , , Procedure Date: 08/10/2022 10:48 AM Date of : 1965 Age: 56 Admit Type: Outpatient Gender: Female Room: [place] [address] Referring MD: MARCEL ANGUIANO Exam Type: Colonoscopy Indications: High risk colon cancer surveillance: Personalhistory of colonic polyps Medications: Monitored Anesthesia Care Procedure: Informed consent was obtained from the patientafter discussion of the indications, limitations, alternatives, benefits, and risks of the procedure. Risks specifically discussed include but are not limited to medication reactions, missed lesions, bleeding, perforation, or the need for emergent surgery. Throughout the procedure, the patient's blood pressure, pulse, end-tidal CO2, and oxygensaturations were monitored continuously. The Olympus pediatric variable colonoscopePCF-H190DL #1 was introduced through the anus and advanced tothe cecum, identified by appendiceal orifice andileocecal valve. The colonoscopy was performed without difficulty. The patient tolerated the procedurewell. The quality of the bowel preparation was excellent. The quality of the bowel preparation was evaluated using the BBPS ([place] Bowel Preparation Scale)with scores of: Right Colon = 3, Transverse Colon = 3and Left Colon = 3 (entire mucosa seen well with no residual staining, small fragments of stool oropaque liquid). The total BBPS score equals 9. Anatomical landmarks were photographed. Complications: No immediate complications. Estimated blood loss: Minimal. Findings: The perianal and digital rectal examinations were normal. A 5 mm polyp was found in the cecum. The polyp was carpet-like. The polyp was removed with a coldsnare. Resection and retrieval were complete. A 4 mm polyp was found in the ascending colon. The polyp was sessile. The polyp was removed with acold snare. Resection and retrieval were complete. Scattered small and large-mouthed diverticula were found in the sigmoid colon. Internal hemorrhoids were found duringretroflexion. The hemorrhoids were mild. The exam was otherwise normal throughout theexamined colon. Impression: - One 5 mm polyp in the cecum, removed with a cold snare. Resected and retrieved. - One 4 mm polyp in the ascending colon, removedwith a cold snare. Resected and retrieved. - Mild diverticulosis in the sigmoid colon. - Internal hemorrhoids. Recommendation: - Discharge patient to home. - Await pathology results. RUIZ KENNEDY MD, 08/10/2022 11:12:50 AM This report has been signed electronically. Number of Addenda: 0 Note Initiated On: 08/10/2022 10:48 AM Procedure Code(s): --- Professional --- 54294, Colonoscopy, flexible; with removal of tumor(s), polyp(s), or other lesion(s) by snare technique --- Technical --- 57891, Colonoscopy, flexible; with removal of tumor(s), polyp(s), or other lesion(s) by snare technique Diagnosis Code(s): --- Professional --- Z86.010, Personal history of colonic polyps D12.0, Benign neoplasm of cecum D12.2, Benign neoplasm of ascending colon K64.8, Other hemorrhoids K57.30, Diverticulosis of large intestine without perforation or abscess without bleeding --- Technical --- Z86.010, Personal history of colonic polyps D12.0, Benign neoplasm of cecum D12.2, Benign neoplasm of ascending colon K64.8, Other hemorrhoids K57.30, Diverticulosis of large intestine without perforation or abscess without bleeding CPT copyright 2021 [employer]. All rights reserved. The codes documented in this report are preliminary and upon auto overhauler reviewmay be revised to meet current compliance requirements. Procedure Date: 08/10/2022 10:48:[address] [place] [address] Marcel Anguiano CNP GI PROCEDURE ORDERABLES F inal Result * Pap Smear (08/19/2021 12:00 AM EDT) 08/19/2021 08/22/2021 9:1 6 AM EDT Narrative SEE NARRATIVE - 08/25/2021 11:45 AM EDT [address] [address] Alarm Technician: Xena Harman MD SILK FOLDER Cytology Report FINAL DIAGNOSIS A. PAP SMEAR (SUREPATH) CE: SPECIMEN ADEQUACY: Satisfactory for evaluation; transformation zone present. INTERPRETATION: NEGATIVE FOR INTRAEPITHELIAL LESION OR MALIGNANCY. Electronically Signed Out By: GABRIELA Blackman(ASCP) The Pap test is a screening test primarily for squamous cancers and precursors and has associated false-negative and false-positive results. New technologies such as liquid-based preparations may decrease but will not eliminate all false-negative results. Regular sampling and follow-up of unexplained clinical signs and symptoms are recommended to minimize false negative results. PROCEDURES/ADDENDA HPV Testing (Requested) Ordered Date: 08/22/2021 A. PAP SMEAR (SUREPATH) CE: Human Papilloma Virus Test Negative for high-risk human papillomavirus types 16, 18, 45 and the Other high risk probe set (Includes 31, 33, 35, 39, 51, 52, 56, 58, 59, 66, 68) by RealD Onclarity HR-HPV analysis. Clinical correlation is advised. This HPV test was performed at [facility], [address] [place] [address]. This test has been FDA approved for SurePath cervical cytology specimens. The accuracy and precision of this test for all other specimen sources has been verified in the Cytopathology Laboratory of the [facility] and has not been cleared or approved by the U.S. Food and Drug Administration. Clinical correlation is advised. CLINICAL HISTORY Date of Last Menstrual Period: 2018 Menstrual History: Post Menopausal Other Clinical Conditions: Screening Pap SPECIMEN SOURCE A: PAP SMEAR (SUREPATH) CE Patient Name: KAYE CHOW : 1965 (Age: 55) Sex: F Institution: [facility] Location: [facility] Date of Collection: 08/19/2021 Date of Reported: 08/25/2021 11:45 Results to: Marcel RAMON us Marcel Anguiano FORMS EXAMINER CYTOLOGY ORDERABLES Final Result SEE NARRATIVE * Outside Hepatitis C Virus Screening (04/21/2015) Hepatitis C Screening - External Neg Historical Provider LAB BLOOD ORDERABLES Brenda l Result from Last 3 Months or Most Recently Relevant to Health Maintenance Insurance [facility] [address] [place] [address] [facility] Care Teams Freight Loading Supervisor Relationship Specialty Start Date End Date Marcel Anguiano CNP [address] [facility], [address] [place] [address] [email or web address] PCP - General Family Medicine 02/20/18 Simeon Garzon MD [address] [place] [address] Psychiatry 02/24/20 Charla Jim OD [address] [place] [address] Optometry 08/19/21 Jeanie Gaitan, HAYLIE [address] [place] [address] 11/13/23 Additional Source Comments The information contained in this document represents components of the legal health record. It is not the complete legal health record.[facility]
--- OUTSIDE RECORDS SUMMARY | 2025-01-16 15:29 | XMS_ITS | Encounter Summary ---
Author Organization [facility] Address [address] [place] [address] [place] [address] Phone Care Team Providers Care Mortgage Analyst Name Role Phone Dillonroshni Modesto MUSE Primary Care Provider [phone] Simeon Garzon MD Unavailable [phone] Charla Jim OD Unavailable [phone] Unavailable [phone] Encounter Details Date Type Department Care Team (Late st Contact Info) Description 01/28/2024 Procedure Pass [facility], Ct Scan - [address] [address] Social History Tobacco Use Types Packs/Day Years [...] high school, GED, job training, learning the [place] language, technical skills, or developing parenting skills)? [...] in WIC? Not on file 0 11/13/2023 Comments No Sex and Gender Information Value [...] Info) Description 02/10/2025 10:00 AM EDT Nutrition [facility] [address] [place] [address] Adina Mccartney MD [address] [place] [address], [address] [place] [address] Jeanie Gaitan LDN [address] [place] [address], [address] [place] [address] 02/27/2025 10:10 AM EST Office Visit [facility] [address] [place] [address] Radha Zaman MD, MPH [address] [place] [address], [address] [place] [address] documented as of this encounter Visit Diagnoses Not on filedocumented in this encounter Additional Health Concerns Assessment Noted Time PHQ-2 Depression Total Score: 2 11/13/19 24 8:56 AM EDT documented as of this encounter Care Teams Mortgage Analyst Relationship Specialty Start Date End Date Modesto Ramirez CNP [address] [place] [address], [address] [place] [address] PCP - General Family Medicine 02/20/18 Simeon Garzon MD [address] [facility] [place] [address] Psychiatry 02/24/20 Charla Jim OD [address] [place] [address] Optometry 08/19/21 Jeanie Gaitan, RD [address] [place] [address] 11/13/23 documented as of this encounter Additional Source Comments The information contained in this document represents components of the legal health record. It is not the complete legal health record.[facility]
--- OUTSIDE RECORDS SUMMARY | 2025-01-16 15:29 | XMS_ITS | Encounter Summary ---
Author Organization [facility] Address [address] [place] [address] Phone Care Team Providers Care Bottle Carrier Name Role Phone Modesto Ramirez CNP Primary Care Provider [phone] Simeon Garzon MD Unavailable [phone] Charla Jim OD Unavailable [phone] Unavailable [phone] Reason for Referral * MRI/CAT Scan - Closed Specialty Diagnoses / Procedures Referred By Contanoop t Referred To Contact Radiology Diagnoses Chronic sinusitis, unspecified location Procedures CT Face System, Provider Not In, [facility] [address] [address] Referral ID Status Reason Start Date Expiration Date Visits Re quested Visits Authorized [id number] Closed 01/28/2024 01/27/2025 1 1 Encounter Details Date Type Department Care Team (Late st Contact Info) Description 01/28/2024 Transcribe Orders Virtual Department [address] [place] [address] System, Provider Not In, [facility] [address] [address] Chronic sinusitis, unspecified location (Primary Dx) Social History Tobacco Use Types Packs/Day Years [...] AM EDT Nutrition [facility] [address] [place] [address] Adina Mccartney MD [address] [place] [address] Jeanie Gaitan LDN [address] [place] [address] 02/27/2025 10:10 AM EST Office Visit [facility] [address] [place] [address] [place] [address] Radha Zaman MD, MPH [address] [place] [address], [facility] [address] [place] [address] documented as of this encounter Results * CT FACE WITHOUT CONTRAST (02/10/2024 11:24 AM EDT) Anatomical Region Laterality Modality Face Computed Tomogra phy 02/12/2024 8:21 AM EDT Impressions 02/12/2024 8:31 AM EDT Essentially clear paranasal sinuses and nasal cavity. Narrative 02/12/2024 8:[address] FACE WITHOUT CONTRAST Referring clinician's provided indication for this examination in [facility]: Outside Radiology Order; chronic sinusitis TECHNIQUE: Multidetector-row CT of the sinuses was performed without intravenous contrast using tailored dose modulation techniques. Images were reconstructed in the axial, coronal, and sagittal planes. COMPARISON: None. FINDINGS: Frontal sinuses and frontoethmoidal junctions: Normal. Clear. Anterior and posterior ethmoid air cells: Minimal mucosal thickening. Maxillary sinuses and infundibula: Normal. Clear. Sphenoid sinuses and sphenoethmoidal recesses: Normal. Clear. Nasal cavity: Rightward nasal septal deviation. Imaged maxillary teeth: Normal. No periapical lucencies. Mastoid air cells and middle ear cavities: Normal. Clear. Temporomandibular joints: Moderate bilateral TMJ arthropathy. Brain: Images of the brain parenchyma are not of diagnostic quality for the soft tissues. No focal abnormality is visible with this technique. Orbits and globes: Normal. No abnormality. Soft tissue: Right frontal scalp trichilemmal cyst. Procedure Note Jerald Parker MD - 02/12/2024 CT FACE WITHOUT CONTRAST Referring clinician's provided indication for this examination in [facility]:Outside Radiology Order; chronic sinusitis TECHNIQUE: Multidetector-row CT of the sinuses was performed withoutintravenous contrast using tailored dose modulation techniques. Imageswere reconstructed in the axial, coronal, and sagittal planes. COMPARISON: None. FINDINGS: Frontal sinuses and frontoethmoidal junctions: Normal. Clear. Anterior and posterior ethmoid air cells: Minimal mucosal thickening. Maxillary sinuses and infundibula: Normal. Clear. Sphenoid sinuses and sphenoethmoidal recesses: Normal. Clear. Nasal cavity: Rightward nasal septal deviation. Imaged maxillary teeth: Normal. No periapical lucencies. Mastoid air cells and middle ear cavities: Normal. Clear. Temporomandibular joints: Moderate bilateral TMJ arthropathy. Brain: Images of the brain parenchyma are not of diagnostic quality forthe soft tissues. No focal abnormality is visible with this technique. Orbits and globes: Normal. No abnormality. Soft tissue: Right frontal scalp trichilemmal cyst. IMPRESSION: Essentially clear paranasal sinuses and nasal cavity. us Provider Not In System PhD IMG CT HEAD/NECK Brenda l Result documented in this encounter Visit Diagnoses Diagnosis Chronic sinusitis, unspecified location- Primary Chronic sinusitis, unspecified location documented in this encounter Additional Health Concerns Assessment Noted Time PHQ-2 Depression Total Score: 2 11/13/19 8:56 AM EDT documented as of this encounter Care Teams Bottle Carrier Relationship Specialty Start Date End Date Modesto Ramirez CNP [address] [facility], [address] [place] [address] [email or web address] PCP - General Family Medicine 02/20/18 Simeon Garzon MD [address] [place] [address] Psychiatry 02/24/20 Charla Jim OD [address] [place] [address] Optometry 08/19/21 Jeanie Gaitan, RD [address] [place] [address] 11/13/23 documented as of this encounter Additional Source Comments The information contained in this document represents components of the legal health record. It is not the complete legal health record.[facility]
== END 2025-01-16 15:28 | disposition home or self-care (01) ==
LOC: HO.HOP 15:27
PROVIDERS: PCP Nurse Practitioner Adult Health; Visit Provider Psychiatry & Neurology Psychiatry
DX: F34.1 Dysthymic disorder (principal); F90.0 Attention-deficit hyperactivity disorder, predominantly inattentive type
CPT/HCPCS: 99214